=== PATIENT | male | born 1960 | race Caucasian/White ===

== ENCOUNTER → 2023-10-28 12:39 | Outpatient (REF) | payer MEDICARE, MEDICAID, SELFPAY | LOC: DHCBS MAIN 12:39 | PROVIDERS: ATTENDING PHYSICIAN Internal Medicine Cardiovascular Disease; FAMILY PHYSICIAN Internal Medicine | DX: I42.0 Dilated cardiomyopathy (principal) | CPT/HCPCS: 93306 ==

== ENCOUNTER 2024-03-11 16:48 | Emergency (ER) | payer MEDICARE, MEDICAID, SELFPAY ==
[2024-03-11] VITALS (7 sets, daily range): BP systolic 106–159; BP diastolic 57–102; BMI 30.3
[2024-03-11 17:10] LABS: % Basophils 0.6 % (0-2); % Eosinophils 1.3 % (0-6); % Immature Granulocytes 0.3 % (0-0.5); % Lymphocytes 28.9 % (20.5-51.1); % Monocytes 8.8 % (1.7-9.3); % Neutrophils 60.1 % (42.2-75.2); Absolute Eosinophils 0.1 10^3/uL (0-0.7); Absolute Lymphocytes 1.8 10^3/uL (1.2-3.4); Absolute Monocytes 0.5 10^3/uL (0.1-0.6); Absolute Neutrophils 3.7 10^3/uL (1.4-6.5); Hemoglobin 15.4 g/dL (13.0-18.0); Mean Corp Hgb Conc. 34.2 g/dL (33.0-37.0); Mean Corpuscular Hgb 30.6 pg (27.0-31.0); Mean Corpuscular Volume 89.5 fL (80.0-94.0); Mean Platelet Volume 9.9 fL (7.4-10.4); Nucleated Red Blood Cells % 0 % (-); Platelet Count 189 10^3/uL (130-400); Red Blood Cell Count 5.03 10^6/uL (4.70-6.10); Red Cell Dist. Width 11.9 % (11.5-14.5); White Blood Cell Count 6.2 10^3/uL (4.8-10.8)
--- NOTE | 2024-03-11 17:11 | ED.CVA ---
History of Present Illness
General
Chief Complaint: CVA/TIA Symptoms
Source: patient and ambulance crew
Time Seen by Provider: 03/11/24 16:53
Onset of Stroke Symptoms
Onset of symptoms known: No
Time pt last seen normal is known: Yes
Date last time pt seen normal: 03/09/24
Time last time pt seen normal: 23:00
History of Present Illness
History of Present Illness:
63-year-old male presents to the emergency room from [facility] because he was experiencing left lower extremity weakness and staff perceived increased left facial droop. Patient does have a history of a CVA which left him with
significant left sided weakness. Through rehab he was able to gain some use of his leg is ambulatory. Patient noticed when he awoke from sleep yesterday morning that he was having difficulty using his left leg. He was still able to ambulate but
was more problematic. Staff thought he had a more prominent left facial droop though the patient states he has a chronic left facial droop. Patient denies any headache. He denies any fever, chills, nausea or vomiting.
Past History
Past History
ED Past Medical History: CHF (EF of 10%), CVA (Right MCA infarct January 2014), HTN, Hypercholesterolemia, Other (Bilateral pulmonary embolism January 2014, DVT) and Other (Stroke Large R MCA 01/2014)
ED Past Surgical History: Orthopedic (R LE stent and R shoulder) and Other
Social History
Tobacco: Former smoker
Alcohol: Occasional
Drug: Former user, Narcotics and IVDA
Personal:
Living: prison
Employment: Employed
Family History
Family History: Diabetes
Phy Exam
Physical Exam
Physical Exam:
General: Awake, Alert, Oriented X3. No acute distress.
Vitals: unremarkable
Head: Atraumatic
Eyes: Pupils equal, EOMI
Throat: Airway intact, no exudates
Neck: Trachea midline
Lungs: Clear and equal b/l
Heart: Regular rate, no murmurs
Abd: Soft, Nontender, No pulsatile mass
Neuro: Left facial droop which is chronic, left upper extremity contracture at the elbow, left lower extremity 5/5 strength. Sensation appears intact in the lower extremities bilaterally and right upper extremity.
Skin: Warm, dry, no rash
Extremities: pulses equal b/l, no edema
Course
Orders/Labs/Results
Orders:
Orders
03/11/24 16:55
Electrocardiogram (*1) Urgent
Reason for Study: Other
Other Reason for Exam: Possible Stroke
Bedside Glucose- Treatment ONCE
Cardiac Monitoring- Treatment ONCE
IV Insert/Care/Rem.- Treatment PRN
Vital Signs As Directed
Frequency: Other
Weight As Directed
Frequency: Once
Comment: ZERO STRETCHER SCALE FOR ACCURATE WEIGHT
O2 Therapy [RESP] Urgent
Titrate/Wean O2 to maintain O2 sat greater than (%): 93
Special Instructions: MAINTAIN CONTINUOUS O2 SATS > OR = 93%
03/11/24 16:56
EKG- Treatment ONCE
03/11/24 16:57
Complete Blood Count/With Diff Urgent
PTT Urgent
Prothrombin Time Urgent
Troponin I Urgent
Urinalysis Reflex To Culture Urgent
Date Specimen was Collected: 03/11/24
Time Specimen was Collected: 16:56
03/11/24 17:10
CT Head W/o Iv Contrast Urgent
Comment:
Reason For Exam: left leg weakness
03/11/24 18:12
Speech Screening from Yudelka Routine
03/11/24 18:18
Comprehensive Metabolic Panel Urgent
Abnormal Lab Results
03/11/24 03/11/24
16:57 18:18
PT 15.3 H Sec
(11.4-14.6)
BUN 26 H mg/dl
(9-20)
Total Bilirubin 1.7 H mg/dl
(0.2-1.3)
Urine Ketones 2+ A
(Negative)
Urine Glucose 3+ A
(Negative)
03/11/24 16:57
03/11/24 18:18
Vital Signs
Initial and Last Documented VS:
Initial Vital Signs
BP
109/62
03/11/24 16:52
Last Documented Vital Signs
Temp Pulse Resp BP Pulse Ox
98.0 F 103 16 159/75 99
03/11/24 16:58 03/11/24 20:15 03/11/24 20:15 03/11/24 20:12 03/11/24 17:38
*Radiology
Radiology exam reviewed: radiology read reviewed
*Pulse Oximetry
Patient hypoxic: no
*EKG
Interpreted by ED Provider?: Yes
Interpretation: abnormal
Heart Rate: 89
Rate: normal
Rhythm: sinus and PVC's
QRS Pattern: left vent hypertrophy
Ischemia: non-specific ST changes
*Research Project Manager Interpretation
Rate: normal
Interpretation: abnormal
Rhythm: sinus and PVC's
*Critical Care Note
Total Time (30-74mins, 75-104mins- exclusive of procedures): Not Applicable
ED Attending Note
-
Portions of this chart may have been created with voice recognition software.� Occasional wrong word or��sound alike� substitutions may have occurred due to the inherent limitations of voice recognition software.
Discharge Plan
Departure
Patient Disposition: Long-Term/SNF
Date of Disposition: 03/11/24
Time of Disposition: 20:39
Patient with high blood pressure during this ER visit?: Yes
Condition: Good
Discharge Problem:
Left leg weakness
Instructions: Weakness ED
Prescriptions:
No Action
aspirin 81 mg Tablet,Delayed Release (Dr/Ec)
81 mg PO DAILY Qty: 0
spironolactone 12.5 MG tablet
12.5 mg PO DAILY
Eliquis 5 mg Tablet
5 mg PO BID Qty: 0
latanoprost 0.005 % Drops
1 drp BOTH EYES QPM Qty: 0
atorvastatin 40 MG tablet
40 mg PO QPM Qty: 0 0RF
Rx Instructions:
after one week
acetaminophen 325 mg Tablet
650 mg PO Q6HPRN PRN (Reason: temp>100)
carvedilol 6.25 mg tablet
6.25 mg PO BID
gabapentin 400 mg Capsule
400 mg PO HS
loperamide [Imodium A-D] 2 mg Tablet
2 mg PO [id number] PRN (Reason: diarrhea)
acetaminophen 500 mg Tablet
500 mg PO Q4HPRN PRN (Reason: mild pain)
acetaminophen 500 mg Tablet
500 mg PO BID
magnesium hydroxide [Milk of Magnesia] 400 mg/5 mL Suspension
30 ml PO DAILYPRN PRN (Reason: constipation)
bisacodyl [Dulcolax (bisacodyl)] 10 mg Suppository
10 mg ME DAILYPRN PRN (Reason: if mom ineffective after 24hrs)
Fleet Enema 19-7 gram/118 mL Enema
118 ml ME DAILYPRN PRN (Reason: if dulcolax is ineffective after 24hrs)
gabapentin 300 mg Capsule
300 mg PO DAILY
furosemide 20 mg tablet
20 mg PO DAILY
melatonin 5 mg Tablet
5 mg PO HS
Jardiance 10 mg tablet
10 mg PO DAILY
Entresto 49-51 mg tablet
1 tab PO BID
tramadol 50 MG tablet
50 mg PO BID
Referrals:
UNKNOWN - PT DOES,NOT KNOW [Family Provider] -
Activity Restrictions/Additional Instructions:
You CT scan does not show a new infarct. You are already taking all the appropriate medications even if you did have a small, new stroke. You are stable for discharge back to your facility.
Interventions
Interventions:
*Risk Screen - Suicide Last Done: 03/11/24 16:58
*General Assessment Last Done: 03/11/24 16:58
*Neglect/Abuse Screening Last Done: 03/11/24 16:58
*ED COVID-19 Vaccine History Last Done: 03/11/24 17:06
ED- Pulmonary Assessment Last Done: 03/11/24 17:38
ED- Neurological Assessment Last Done: 03/11/24 17:38
ED- Cardiac Assessment Last Done: 03/11/24 17:38
ED Swallowing Screen Last Done: 03/11/24 18:10
Discharge Date and Time
Print Language: STATELESS
[2024-03-11 17:17] LABS: INR 1.22; PT 15.3 Sec (11.4-14.6)
[2024-03-11 17:18] LABS: APTT 28.9 Sec (23.4-35.0)
[2024-03-11 17:20] LABS: Glucose - Point of Care 93 mg/dl (70-99)
[2024-03-11 17:26] LABS: Troponin I < 0.012 ng/ml
[2024-03-11 18:44] LABS: ALT (SGPT) 24 U/L (0-50); AST (SGOT) 27 U/L (17-59); Albumin 4.6 g/dl (3.5-5.0); Alkaline Phosphatase 63 U/L (38-126); Blood Urea Nitrogen 26 mg/dl (9-20); Calcium 9.5 mg/dl (8.4-10.2); Carbon Dioxide 23 mmol/L (22-30); Chloride 102 mmol/L (98-107); Estimated Creatinine Clearance > 125 ml/min; Glucose 91 mg/dl (70-99); Potassium 4.2 mmol/L (3.5-5.1); Sodium 135 mmol/L (135-145); Total Bilirubin 1.7 mg/dl (0.2-1.3); Total Protein 7.1 g/dl (6.3-8.2); eGFR > 60.00
[2024-03-11 19:49] LABS: Urine Albumin Trace (Neg - Trace); Urine Bilirubin Negative (Negative); Urine Character Clear (Clear); Urine Color Yellow; Urine Glucose 3+ (Negative); Urine Ketone 2+ (Negative); Urine Leukocyte Negative (Negative); Urine Nitrite Negative (Negative); Urine Occult Blood Negative (Negative); Urine Urobilinogen Negative (Neg - 1+)
== END 2024-03-11 22:52 ==
LOC: EMR 16:48
PROVIDERS: EMERGENCY PHYSICIAN Emergency Medicine
DX: R53.1 Weakness (principal); R29.810 Facial weakness; I11.0 Hypertensive heart disease with heart failure; I50.9 Heart failure, unspecified; E78.00 Pure hypercholesterolemia, unspecified; Z83.3 Family history of diabetes mellitus; Z86.711 Personal history of pulmonary embolism; Z86.718 Personal history of other venous thrombosis and embolism; Z86.73 Personal history of transient ischemic attack (TIA), and cerebral infarction without residual deficits; Z87.891 Personal history of nicotine dependence
CPT/HCPCS: 99284; 70450; 80053; 81003; 82962; 84484; 85025; 85610; 85730; 93005

== ENCOUNTER 2024-03-13 09:08 | Inpatient (IN) | payer MEDICARE, MEDICAID, SELFPAY ==
[2024-03-12] VITALS (14 sets, daily range): BP systolic 101–172; BP diastolic 62–98; PULSE 107–135; O2SAT 96; BMI 30.6; BMI 29.7
[2024-03-12 03:49] LABS: Glucose - Point of Care 108 mg/dl (70-99)
--- NOTE | 2024-03-12 04:11 | ED.CVA ---
History of Present Illness
<Hansa Freeman DO - Last Filed: 03/12/24 07:08>
General
Chief Complaint: CVA/TIA Symptoms
Time Seen by Provider: 03/12/24 03:52
Onset of Stroke Symptoms
Onset of symptoms known: Yes
Date of onset of symptoms: 03/12/24
History of Present Illness
History of Present Illness:
63-year-old male with history of prior stroke with chronic left-sided facial droop and left-sided weakness, congestive heart failure, hyperlipidemia, hypertension, anticoagulated on Eliquis presenting to the emergency department for strokelike
symptoms. Patient presents from [facility] with nursing facility. Patient had been seen about 12 hours prior to arrival with staff concern for worsening left-sided facial droop and left lower extremity weakness. Patient has these deficits at
baseline. He had CT brain and CT angio, which was negative for acute process. [facility] Upon his arrival back to the nursing facility, staff was concerned that his speech was worse, and now some right
sided weakness. Patient subsequently sent back to the emergency department. Patient in agreement, feels that his speech is worse in the right lower extremities. He is unsure when he last felt normal. Denies chest pain, difficulty breathing,
abdominal pain. Denies fever or systemic symptoms. No additional history obtained at this time
Past History
<DO Beverly Harper Last Filed: 03/12/24 07:08>
Past History
ED Past Medical History: CHF (EF of 10%), CVA (Right MCA infarct January 2014), HTN, Hypercholesterolemia, Other (Bilateral pulmonary embolism January 2014, DVT) and Other (Stroke Large R MCA 01/2014)
ED Past Surgical History: Orthopedic (R LE stent and R shoulder) and Other
Social History
Tobacco: Former smoker
Alcohol: Occasional
Drug: Former user, Narcotics and IVDA
Personal:
Living: jail
Employment: Employed
Family History
Family History: Diabetes
Phy Exam
<Hansa Freeman DO - Last Filed: 03/12/24 07:08>
Physical Exam
Physical Exam:
General: no clinical signs of dehydration, nontoxic and in no acute distress
HEENT: protecting airway
Neck: appears supple
CV: Normal heart rate, regular rhythm, no evidence of cyanosis
Resp: No accessory muscle use, no increased work of breathing, lungs clear to auscultation bilaterally
Abd: Soft and non-distended, no tenderness to palpation
Extremities: No deformities, no swelling, no erythema
Neuro: alert, slurred speech, left-sided facial droop which is reported as chronic, contracted left upper extremity which is reported as chronic, left lower extremity weakness (4/5, reported as chronic), 4/5 strength of right lower extremity with
drift which is reportedly new. Intact strength to right upper extremity. Intact sensation globally
: deferred
Rectal: deferred
Psych: Normal affect
Skin: Intact
NIH Stroke Score
Level of Consciousness: 0 - Alert
LOC questions: 0-Answers both correctly
LOC Commands: 0-Performs both correctly
Best Gaze: 0-Normal
Visual Lay: 0=Normal, no visual loss
Facial palsy: 2=Partial paralysis (chronic)
Motor - Right Arm: 0=No drift 10 seconds
Motor - Left Arm: 4=No movement (chronic)
Motor - Right Le-Drift < 5 seconds
Motor - Left Le-Drift < 5 seconds (chronic)
Limb Ataxia: 0-Absent
Sensation: 0-Normal
Best Language: 0-No aphasia
Dysarthria: 1-Mild slurring
Extinction and Inattention: 0-No abnormality
Total Score:: 9
<Meme Dillard MD - Last Filed: 03/12/24 09:07>
NIH Stroke Score
Total Score:: 9
Course
<Hansa Freeman, DO - Last Filed: 03/12/24 07:08>
Orders/Labs/Results
Orders:
Orders
03/12/24 03:52
CT Head & Neck Angio W/wo IV Urgent
Comment:
Reason For Exam: slurred speech
03/12/24 04:25
Type+Screen Urgent
Complete Blood Count/With Diff Urgent
Comprehensive Metabolic Panel Urgent
PTT Urgent
Prothrombin Time Urgent
Troponin I Q6H
03/12/24 04:47
EKG [Electrocardiogram (*1)] Urgent
Reason for Study: TIA/Stroke
03/12/24 04:48
EKG- Treatment ONCE
03/12/24 05:48
Admit/Transfer Patient As Directed
Co-Sign Provider:
Level of Care: Observation services
Assign to:: Telemetry
Physician / Group: Len
Diagnosis: CVA / TIA
Reason for Telemetry: CVA/TIA
Date to Stop Telemetry: 03/15/24
Time to Stop Telemetry: 11:00
PRN Pain Medication Management As Directed
May give lesser potent ordered pain med per pt: Yes
preference::
Protocol:: Medication orders for pain may be administered in a
manner that supports deferring to patient preference
when the pt is:
- Requesting an ordered lesser potent pain medication.
Least to most potent pain medications are defined
as: acetaminophen < NSAID < tramadol < opioids
(morphine, oxycodone, hydromorphone).
- Requesting a lesser dose of the same medication IF
ORDERED.
- Requesting a less intrusive route of administration
if both routes are prescribed by the provider (PO <
IV).
03/12/24 05:51
Code Status As Directed
Resuscitation Status: Do not resuscitate
Based on pt advanced directive or healthcare POA form: Yes
03/12/24 05:53
DNR Bracelet Application ONCE
03/12/24 10:00
Troponin I Q6H
03/12/24 16:00
Troponin I Q6H
03/12/24 22:00
Troponin I Q6H
03/15/24 11:00
DC Protocol for Telemetry ONCE
Abnormal Lab Results
03/12/24 03/12/24
03:48 04:25
Absolute Lymphs (auto) 1.1 L 10^3/uL
(1.2-3.4)
Lymphocytes % 17.7 L %
(20.5-51.1)
PT 17.0 H Sec
(11.4-14.6)
Sodium 133 L mmol/L
(135-145)
BUN 29 H mg/dl
(9-20)
Total Bilirubin 2.4 H mg/dl
(0.2-1.3)
POC Glucose 108 H mg/dl
(70-99)
03/12/24 04:25
03/12/24 04:25
Vital Signs
Initial and Last Documented VS:
Initial Vital Signs
Temp Pulse Resp BP Pulse Ox
97.9 F 96 18 130/70 98
03/12/24 03:44 03/12/24 03:44 03/12/24 03:44 03/12/24 03:44 03/12/24 03:44
Last Documented Vital Signs
Temp Pulse Resp BP Pulse Ox
97.9 F 82 16 130/78 93
03/12/24 03:44 03/12/24 08:00 03/12/24 07:45 03/12/24 07:00 03/12/24 08:00
<Meme Dillard MD - Last Filed: 03/12/24 09:07>
Orders/Labs/Results
Orders:
Orders
03/12/24 03:52
CT Head & Neck Angio W/wo IV Urgent
Comment:
Reason For Exam: slurred speech
03/12/24 04:25
Type+Screen Urgent
Complete Blood Count/With Diff Urgent
Comprehensive Metabolic Panel Urgent
PTT Urgent
Prothrombin Time Urgent
Troponin I Q6H
03/12/24 04:47
EKG [Electrocardiogram (*1)] Urgent
Reason for Study: TIA/Stroke
03/12/24 04:48
EKG- Treatment ONCE
03/12/24 05:48
Admit/Transfer Patient As Directed
Co-Sign Provider:
Level of Care: Observation services
Assign to:: Telemetry
Physician / Group: Len
Diagnosis: CVA / TIA
Reason for Telemetry: CVA/TIA
Date to Stop Telemetry: 03/15/24
Time to Stop Telemetry: 11:00
PRN Pain Medication Management As Directed
May give lesser potent ordered pain med per pt: Yes
preference::
Protocol:: Medication orders for pain may be administered in a
manner that supports deferring to patient preference
when the pt is:
- Requesting an ordered lesser potent pain medication.
Least to most potent pain medications are defined
as: acetaminophen < NSAID < tramadol < opioids
(morphine, oxycodone, hydromorphone).
- Requesting a lesser dose of the same medication IF
ORDERED.
- Requesting a less intrusive route of administration
if both routes are prescribed by the provider (PO <
IV).
03/12/24 05:51
Code Status As Directed
Resuscitation Status: Do not resuscitate
Based on pt advanced directive or healthcare POA form: Yes
03/12/24 05:53
DNR Bracelet Application ONCE
03/12/24 10:00
Troponin I Q6H
03/12/24 16:00
Troponin I Q6H
03/12/24 22:00
Troponin I Q6H
03/15/24 11:00
DC Protocol for Telemetry ONCE
Abnormal Lab Results
03/12/24 03/12/24
03:48 04:25
Absolute Lymphs (auto) 1.1 L 10^3/uL
(1.2-3.4)
Lymphocytes % 17.7 L %
(20.5-51.1)
PT 17.0 H Sec
(11.4-14.6)
Sodium 133 L mmol/L
(135-145)
BUN 29 H mg/dl
(9-20)
Total Bilirubin 2.4 H mg/dl
(0.2-1.3)
POC Glucose 108 H mg/dl
(70-99)
03/12/24 04:25
03/12/24 04:25
Vital Signs
Initial and Last Documented VS:
Initial Vital Signs
Temp Pulse Resp BP Pulse Ox
97.9 F 96 18 130/70 98
03/12/24 03:44 03/12/24 03:44 03/12/24 03:44 03/12/24 03:44 03/12/24 03:44
Last Documented Vital Signs
Temp Pulse Resp BP Pulse Ox
97.9 F 82 16 130/78 93
03/12/24 03:44 03/12/24 08:00 03/12/24 07:45 03/12/24 07:00 03/12/24 08:00
<Hansa Freeman, DO - Last Filed: 03/12/24 07:08>
MDM/Problems Addressed
MDM/Problems Addressed:
63-year-old male with prior history of CVA with left-sided deficits and anticoagulation on Eliquis presenting for slurred speech and right-sided weakness. Vital signs on arrival are normal.
On exam, patient in no acute distress. Obvious neurologic deficits, however most of which appear to be chronic in nature with obvious left-sided facial drooping, left upper and lower extremity weakness and slurring of speech. Patient does however
report that his slurred speech feels worse and now is reporting right lower extremity weakness. Patient is unsure when his symptoms started, however patient had been seen at 5 PM yesterday for strokelike symptoms as well, 11 hours prior to arrival.
Given strokelike symptoms, do not feel patient is a tPA candidate. In addition, patient is anticoagulated on Eliquis, again indicating the patient is not a tPA candidate. Due to acute on chronic deficits, patient sent to CT for CT brain and CTA.
Will also repeat laboratory analysis.
05:20 -patient's repeat CT without acute process. Labs unremarkable. Given worsening neurologic symptoms, feel patient warrants admission for continued neurologic monitoring and potential MRI imaging.
<Hansa Freeman DO - Last Filed: 03/12/24 07:08>
*Critical Care Note
Total Time (30-74mins, 75-104mins- exclusive of procedures): Not Applicable
<Meme Dillard MD - Last Filed: 03/12/24 09:07>
Update Note
Update Note:
9:00 AM patient's heart rate increased to the 130s. EKG checked by me. Shows sinus tachycardia with slightly wider QRS and ST depressions. Patient is very difficult to assess given his agitation and drowsiness, however, he does not localize any
areas of pain and seems to be breathing comfortably. Hospitalist made aware and will reassess patient frequently upstairs
ED Attending Note
<Hansa Freeman DO - Last Filed: 03/12/24 07:08>
-
Portions of this chart may have been created with voice recognition software.� Occasional wrong word or��sound alike� substitutions may have occurred due to the inherent limitations of voice recognition software.
Discharge Plan
Departure
Patient Disposition: Admit
Date of Disposition: 03/12/24
Time of Disposition: 05:49
Presentation/result/management discussed w/ accepting MD/DO: Hospitalist
Patient with high blood pressure during this ER visit?: No
Condition: Fair
Discharge Problem:
Stroke-like symptoms, Slurred speech
Interventions
Interventions:
*Risk Screen - Suicide Last Done: 03/12/24 03:44
*General Assessment Last Done: 03/12/24 03:44
*Neglect/Abuse Screening Last Done: 03/12/24 03:44
ED- Pulmonary Assessment Last Done: 03/12/24 04:21
ED- Neurological Assessment Last Done: 03/12/24 07:05
ED- Cardiac Assessment Last Done: 03/12/24 04:21
ED Swallowing Screen Last Done: 03/12/24 06:06
[2024-03-12 04:34] LABS: % Basophils 0.2 % (0-2); % Eosinophils 0.3 % (0-6); % Immature Granulocytes 0.3 % (0-0.5); % Lymphocytes 17.7 % (20.5-51.1); % Monocytes 6.6 % (1.7-9.3); % Neutrophils 74.9 % (42.2-75.2); Absolute Lymphocytes 1.1 10^3/uL (1.2-3.4); Absolute Monocytes 0.4 10^3/uL (0.1-0.6); Absolute Neutrophils 4.8 10^3/uL (1.4-6.5); Hematocrit 41.4 % (39.0-52.0); Hemoglobin 14.4 g/dL (13.0-18.0); Mean Corp Hgb Conc. 34.8 g/dL (33.0-37.0); Mean Corpuscular Hgb 30.3 pg (27.0-31.0); Mean Corpuscular Volume 87.2 fL (80.0-94.0); Mean Platelet Volume 9.8 fL (7.4-10.4); Nucleated Red Blood Cells % 0 % (-); Platelet Count 175 10^3/uL (130-400); Red Blood Cell Count 4.75 10^6/uL (4.70-6.10); Red Cell Dist. Width 11.9 % (11.5-14.5); White Blood Cell Count 6.4 10^3/uL (4.8-10.8)
[2024-03-12 04:46] LABS: APTT 32.7 Sec (23.4-35.0)
[2024-03-12 04:59] LABS: ALT (SGPT) 24 U/L (0-50); AST (SGOT) 27 U/L (17-59); Albumin 4.4 g/dl (3.5-5.0); Alkaline Phosphatase 61 U/L (38-126); Blood Urea Nitrogen 29 mg/dl (9-20); Calcium 9.4 mg/dl (8.4-10.2); Carbon Dioxide 23 mmol/L (22-30); Chloride 101 mmol/L (98-107); Estimated Creatinine Clearance 113 ml/min; Glucose 96 mg/dl (70-99); Potassium 4.3 mmol/L (3.5-5.1); Sodium 133 mmol/L (135-145); Total Bilirubin 2.4 mg/dl (0.2-1.3); Total Protein 6.8 g/dl (6.3-8.2); eGFR > 60.00
[2024-03-12 05:08] LABS: Troponin I < 0.012 ng/ml
--- NOTE | 2024-03-12 05:55 | HPS.HSE ---
Family Physician
-
Family Physician: Apolinar Espinoza, DO
Chief Complaint
-
Weakness
History of Present Illness
Patient is a 63y M with PMH significant for left hemiplegia s/p R MCA CVA who [place] ED from local [facility] complaining of weakness. Patient was seen in the ED on 03/11 with complaints of worsened L sided weakness and L facial droop noted by [facility]
staff. Patient was evaluated in the ED and had CT head which was unremarkable. He stated that he did not have any significant new deficits and was discharged back to nursing facility. Patient returned to the ED several hours later again
complaining of weakness and worsened speech.
Patient complained to the ED staff of RLE weakness.
At the time of my exam, he complains of LLE weakness. He denies any R sided complaints.
He is fairly somnolent in the ED and wakens only with some difficulty / noxious stimuli. He does have thickened / slurred speech which he feels is worse than baseline.
Medical History
Past Medical History
Past Medical History: Reports Other
Additional Past Medical History:
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
Bilateral Pulmonary Embolism
RLE DVT
Hypertension
Chronic HFrEF
Chronic Pain / Polyneuropathy
Past Surgical History: Reports Other
Additional Past Surgical History:
Right Shoulder Surgery
Social History
Tobacco: Former Smoker (Quit in 2015. Approx 40 pack years total use.)
Alcohol: Former (History of alcohol use disorder. No alcohol in several years.)
Drug: Other (History of amphetamine abuse. None in several years.)
Living: Long-Term
Family History
Family History: Other (Mother: CHF Father: Kidney disease)
Allergies / Home Medications
Allergies reflects when Allergies were last updated in [employer].
Home Medications with original date entered in [employer]
Allergy/Medication List:
Allergies
Allergy/AdvReac Type Severity Reaction Status Date / Time
No Known Allergies Allergy Verified 03/12/24 04:56
Home Medications
apixaban 5 mg tablet (Eliquis) 5 mg PO BID ##0 11/21/16
aspirin 81 mg tablet,delayed release 81 mg PO DAILY ##0 11/21/16
latanoprost 0.005 % eye drops 1 drp BOTH EYES QPM ##0 11/21/16
spironolactone 25 mg tablet 12.5 mg PO DAILY 11/21/16
atorvastatin 40 mg tablet 40 mg PO QPM ##0 11/26/16
acetaminophen 325 mg tablet 650 mg PO Q6HPRN PRN temp>100 03/11/24
acetaminophen 500 mg tablet 500 mg PO BID 03/11/24
acetaminophen 500 mg tablet 500 mg PO Q4HPRN PRN mild pain 03/11/24
bisacodyl 10 mg rectal suppository (Dulcolax (bisacodyl)) 10 mg [place] DAILYPRN PRN if mom ineffective after 24hrs 03/11/24
carvedilol 6.25 mg tablet 6.25 mg PO BID 03/11/24
empagliflozin 10 mg tablet (Jardiance) 10 mg PO DAILY 03/11/24
furosemide 20 mg tablet 20 mg PO DAILY 03/11/24
gabapentin 300 mg capsule 300 mg PO DAILY 03/11/24
gabapentin 400 mg capsule 400 mg PO HS 03/11/24
loperamide 2 mg tablet (Imodium A-D) 2 mg PO [id number] PRN diarrhea 03/11/24
magnesium hydroxide 400 mg/5 mL oral suspension (Milk of Magnesia) 30 ml PO DAILYPRN PRN constipation 03/11/24
melatonin 5 mg tablet 5 mg PO HS 03/11/24
sacubitril 49 mg-valsartan 51 mg tablet (Entresto) 1 tab PO BID 03/11/24
sodium phosphates 19 gram-7 gram/118 mL enema (Fleet Enema) 118 ml [place] DAILYPRN PRN if dulcolax is ineffective after 24hrs 03/11/24
tramadol 50 mg tablet 50 mg PO BID 03/11/24
Review of Systems
-
History Source: Patient
A 12 point ROS was completed and negative except as noted: Yes
Constitutional: Denies Fever or Chills
Respiratory: Denies Cough or Trouble Breathing
Cardiac: Denies Chest Pain or Palpitations
Abdomen/GI: Denies Abdominal Pain, Nausea, Vomiting or Diarrhea
Musculoskeletal: Denies Joint Pain or Edema
Neurological: Reports Weakness, Numbness and Other (Slurred speech.); Denies Dizzy or Headache
Psych: Denies Depression or Anxiety
Physical Exam
Vital Signs
Vital Signs
Temp Pulse Resp BP Pulse Ox
97.9 F 105 11 116/71 97
03/12/24 03:44 03/12/24 05:00 03/12/24 05:00 03/12/24 05:00 03/12/24 05:00
Physical Exam
General: Other (63y M sleeping comfortably. Awakens with some difficulty. Answers questions appropriately.)
HEENT: Other (Few crusted skin lesions in L V1 distribution. Dry MM.)
Respiratory: Clear; No Wheezes, Rales or Rhonchi
Cardiac: S1/S2 and Regular Rhythm (with ectopy.); No Murmur
GI: Soft, Non Tender, Non Distended and Normal Bowel Sounds
Musculoskeletal: No Clubbing, No Cyanosis, No Edema and Other (Chronic venous stasis skin changes b/l LEs.)
Neuro: Other (LUE Hemiplegia / contracture - unchanged from baseline. L facial droop / ptosis - unchanged from baseline. LLE weakness compared to the R / dysarthria - worse than baseline per patient.)
Laboratory Results
-
03/12/24 04:25
03/12/24 04:25
Laboratory Results
PT 17.0 Sec (11.4-14.6) H 03/12/24 04:25
INR 1.40 03/12/24 04:25
APTT 32.7 Sec (23.4-35.0) 03/12/24 04:25
Total Bilirubin 2.4 mg/dl (0.2-1.3) H 03/12/24 04:25
AST 27 U/L (17-59) 03/12/24 04:25
ALT 24 U/L (0-50) 03/12/24 04:25
Alkaline Phosphatase 61 U/L (38-126) 03/12/24 04:25
Troponin I < 0.012 ng/ml 03/12/24 04:25
Impression/Plan
-
A/P: Patient is a 63y M with PMH significant for L hemiplegia s/p prior CVA who presents to ED for evaluation of new / worsened weakness.
Dysarthria
Weakness
- Observe for further evaluation and treatment.
- History is somewhat fluid with complaints of L and / or R LE weakness.
- He does have dysarthria which he states is worse and he complains of increased LLE weakness.
- ? recrudescence of prior CVA symptoms due to metabolic issue or other acute process.
- CT and CTA done in the past 24 hours without new changes.
- Follow neuro exam for any new changes.
- MRI this AM for further evaluation.
- Neurology evaluation.
- PT / OT / Speech evals.
- Continue current med regimen including ASA, Eliquis, statin, etc.
Chronic HFrEF
- LVEF 15% on most recent Echo.
- Does not appear grossly volume overloaded on exam.
- BP borderline low for him.
- Continue Entresto with holding parameters.
- Continue Jardiance. Monitor glucose to rule out hypoglycemia, etc.
- Hold Lasix and Aldactone acutely and follow I/Os, daily weight, etc.
ASCVD
Prior CVA with L Hemiparesis / Hemiplegia
- Continue current med regimen including ASA, Eliquis, statin, etc.
Chronic Pain Syndrome
- No complaints of pain at present.
- Continue gabapentin.
- Hold other sedating meds acutely given somnolence noted on admission.
Possible Zoster
- Patient with crusted skin lesions in V1 distribution on the L.
- ? if this is related to increase in dysarthria / droop / etc.
- Does not appear to have any active lesions / pustules.
- Valacyclovir 1000mg TID for now.
- Patient denies significant pain / itching / etc - on chronic gabapentin.
DVT Prophylaxis
History of DVT / PE
- Continue Eliquis.
Code Status: DNR
[2024-03-12] MEDS: ATIVAN 1 MG IV (06:56)
[2024-03-12] MEDS: ASPIR LOW (ENTERIC COATED) 81 MG PO ×3 (09:52→21:28)
[2024-03-12] MEDS: VALTREX 1000 MG PO ×2 (09:52→14:58)
[2024-03-12] MEDS: ELIQUIS 5 MG PO ×2 (09:52→19:52)
[2024-03-12] MEDS: NEURONTIN 300 MG PO ×2 (09:53→19:52)
[2024-03-12] MEDS: COREG 6.25 MG PO (09:53)
[2024-03-12 09:56] LABS: Glucose - Point of Care 104 mg/dl (70-99)
[2024-03-12] MEDS: ENTRESTO 49 MG/51 MG 1 TAB PO ×2 (09:56→19:52)
[2024-03-12 12:11] LABS: TSH Reflex To Free T4 0.73 uIU/ml (0.47-4.68)
--- NOTE | 2024-03-12 13:23 | PTCARENOTE ---
Pt. at MRI. Restless and not cooperating. made aware. IV Ativan ordered and administered. MRI taken.
[2024-03-12] MEDS: ATIVAN 0.5 MG IV (13:52)
[2024-03-12] MEDS: NSS (PRESERVATIVE FREE) 0.25 ML IV (13:53)
[2024-03-12 14:18] LABS: Glucose - Point of Care 124 mg/dl (70-99)
[2024-03-12] MEDS: LOPRESSOR 5 MG IV (14:59)
--- NOTE | 2024-03-12 15:58 | PTOTSP ---
Speech Therapy
Presentation: Patient was partially oriented and confused. Patient's speech appeared to be intelligible with some difficulty inconsistently.
Swallowing Function: MONOTYPER observed patient with several bites of cracker and sips of thin liquids in which patient appeared to tolerate as he did not exhibit any overt clinical s/sx of aspiration. Noted with mild prolonged mastication with regular
consistency solids.
Given the above information, recommend regular consistency solids and thin liquids diet with supervision/ assistance with PO and PO only when alert.
Recommendations:
1) Regular consistency solids and thin liquids
2) Standard aspiration precautions
3) Medications as tolerated
4) Assistance and supervision with PO
5) PO only when alert
Plan: MONOTYPER will continue to follow; pending hospitalization.
--- NOTE | 2024-03-12 16:06 | CON.NEURO4 ---
Addendum entered and electronically signed by Rubio Thomas MD 03/13/24 11:09:
Please Note New LEFT Internal Capsular Infarction with RIGHT hemiparesis
Original Note:
Consultation - Neurology 4
-
CONSULTING PHYSICIAN: Rubio Thomas MD
REFERRING PHYSICIAN: Hospitalist
DICTATED BY: Rubio Russell MD
DATE/TIME OF REQUEST: March 12, 2024
DATE/TIME OF CONSULTATION: March 12 2024.. 1530
Reason for Consultation:
History of Present Illness:
This is a 63 year old right handed male who has presented to the hospital with chief complaint of left-sided weakness. He gives a history of R MCA CVA with L Hemiplegia (January 2014),Bilateral Pulmonary Embolism,
RLE DVT, Hypertension,Chronic HFrEF, Chronic Pain / Polyneuropathy, PMH significant for left hemiplegia s/p R MCA CVA who presents to ED from local [place] complaining of weakness. Patient was seen in the ED on 03/11 with complaints of worsened L sided
weakness and L facial droop noted by [facility] staff. Patient was evaluated in the ED and had CT head which was unremarkable. He stated that he did not have any significant new deficits and was discharged back to nursing facility. Patient returned to
the ED several hours later again complaining of weakness and worsened speech.
Patient complained to the ED staff of RLE weakness.
At the time of my exam, he complains of RLE weakness.
He is fairly somnolent in the ED and wakens only with some difficulty / noxious stimuli. He also has slurred speech which he feels is worse than baseline.
Following admission he continues to have bilateral weakness which is worse on the left side and that is chronic
Past Medical History: As above
Surgical History: Shoulder surgery
Family History: Mother has congestive heart failure father has chronic renal insufficiency
Social History: Single lives at a group home. Past history of alcohol and drug use. Stopped smoking(previous h/o [id number])
Allergies: None
Home Medications: See addendum
Review of Symptoms:
�Per the HPI. I am unable to obtain a complete review of systems�because of patient's inability to provide history.'
Vital Signs:
The patient has a Temp 36.8 C Pulse 135 Resp16 BP 136/81 Pulse Ox 95
Physical Exam:
Head and neck exam: Rash over the left supraorbital region across the forehead
The patient is afebrile, heart sounds S1 and S2 are (regular / irregular), and chest is clear to auscultation bilaterally.
- If not clear, describe.
Neurologic Examination:
The patient is awake, confused and oriented x person . He is able to follow commands and answer questions occasionally. Speech is limited, with aphasia and dysarthria.
On cranial nerve assessment, pupils are 3 mm bilateral, round and reactive to light and accommodation. Visual mclean are full. Extraocular movements are intact. Facial sensations are intact and bilaterally symmetrical,
there is mild facial asymmetry. Hearing is intact bilaterally to normal conversation volume. Tongue palate and uvula are midline. Sternocleidomastoid strengths are full bilaterally.
Motor strengths are 3/5 bilateral upper and lower extremities on medical research [place] scale. There is no drift or involuntary movement noted. Deep tendon reflexes are 2+ bilateral upper and lower extremities and Babinski is present bilaterally.
Sensations of pain, touch, temperature and vibration are impaired bilaterally asymmetrical.. Coordination is impaired by finger to nose bilaterally. Romberg's and gait cannot be tested as patient is bedbound
Lab Results:
Neuro Imaging:
Impression:
Mr. GIAN GUZMAN is a 63 year old M who has presented to the hospital with (symptoms/chief complaint).
Differentials for the patient's presentation include:
1. Right internal capsule infarct
2. Right frontal lobe infarct-chronic with encephalomalacia
3.
4.
Recommendations:
1. Continue Eliquis and aspirin
2. Serial CT head
3. Strict blood pressure management
4. Strict blood sugar control
5. Low-dose statin
Discussed patient care with: Hospitalist
Allergies
-
Allergies
Allergy/AdvReac Type Severity Reaction Status Date / Time
No Known Allergies Allergy Verified 03/12/24 04:56
Vital Signs and Labs
-
Vital Signs and Labs:
Vital Signs
Temp Pulse Resp BP Pulse Ox
36.8 C 135 16 136/81 95
03/12/24 14:27 03/12/24 14:59 03/12/24 14:27 03/12/24 14:59 03/12/24 14:27
Lab Results
03/12/24 04:25
03/12/24 04:25
PT 17.0 Sec (11.4-14.6) H 03/12/24 04:25
INR 1.40 03/12/24 04:25
APTT 32.7 Sec (23.4-35.0) 03/12/24 04:25
Sodium 133 mmol/L (135-145) L 03/12/24 04:25
Potassium 4.3 mmol/L (3.5-5.1) 03/12/24 04:25
BUN 29 mg/dl (9-20) H 03/12/24 04:25
Glucose 96 mg/dl (70-99) 03/12/24 04:25
Calcium 9.4 mg/dl (8.4-10.2) 03/12/24 04:25
Medications
-
Active Medications
Generic Name Dose Route Start Last Admin
Trade Name Freq PRN Reason Stop Dose Admin
Acetaminophen 500 mg 03/12/24 09:11
Acetaminophen 500 Mg Tablet PO 04/09/24 09:10
Q4HPRN PRN
mild pain, temp > 101
Apixaban 5 mg 03/12/24 09:11 03/12/24 09:52
Apixaban (Eliquis) 5 Mg Tablet PO 04/09/24 09:10 5 mg
BID BROOKE Administration
Aspirin 81 mg 03/12/24 18:00
Aspirin 81 Mg (Enteric Coated) Tablet PO 04/09/24 17:59
5/D BROOKE
Atorvastatin Calcium 80 mg 03/12/24 18:00
Atorvastatin (Lipitor) 40 Mg Tablet PO 04/09/24 17:59
QPM BROOKE
Carvedilol 12.5 mg 03/12/24 14:40
Carvedilol 6.25 Mg Tablet PO 04/09/24 09:10
BID BROOKE
Dextrose 12.5 grams 03/12/24 09:11
Dextrose 50% (0.5 Grams/Ml) 50 Ml Syringe IV 04/09/24 09:10
[id number] PRN
hypoglycemia
Protocol
Gabapentin 400 mg 03/12/24 22:00
Gabapentin 400 Mg Capsule PO 04/09/24 21:59
HS BROOKE
Gabapentin 300 mg 03/12/24 20:00
Gabapentin 300 Mg Capsule PO 04/09/24 19:59
BID BROOKE
Glucagon 1 mg 03/12/24 09:11
Glucagon 1 Mg Vial IM 04/09/24 09:10
PRN PRN
hypoglycemia
Protocol
Insulin Aspart 0 units 03/12/24 09:11 03/12/24 14:20
Insulin Aspart Low Resistance 300 Units/3 Ml Pen.Injctr SC 04/09/24 09:10 Not Given
AC BROOKE
Protocol
Latanoprost 1 drop 03/12/24 18:00
Latanoprost 0.005% (Ophthalmic Solution) 2.5 Ml Bottle BOTH EYES 04/09/24 17:59
QPM BROOKE
Sacubitril/Valsartan 1 tab 03/12/24 09:11 03/12/24 09:56
Sacubitril 49 Mg/Valsartan 51 Mg (Entresto) Tab PO 04/09/24 09:10 1 tab
BID BROOKE Administration
Sodium Chloride 0 flush 03/12/24 10:00
Sodium Chloride 0.9% (Flush) Syringe IV 04/09/24 09:59
PER PROTOCOL BROOKE
Valacyclovir HCl 1,000 mg 03/12/24 09:11 03/12/24 14:58
Valacyclovir Hcl 500 Mg Tablet PO 03/22/24 09:10 1,000 mg
TID BROOKE Administration
Home Medications
�Medication �Instructions �Recorded
apixaban 5 mg tablet (Eliquis) 5 mg PO BID Blood Clot 11/21/16
Prevention/Tx ##0
aspirin 81 mg tablet,delayed 81 mg PO DAILY Blood Clot 11/21/16
release Prevention/Tx ##0
latanoprost 0.005 % eye drops 1 drp BOTH EYES QPM Eye Condition 11/21/16
##0
spironolactone 25 mg tablet 12.5 mg PO DAILY Fluid 11/21/16
Retention/Swelling
atorvastatin 40 mg tablet 40 mg PO QPM ##0 11/26/16
acetaminophen 325 mg tablet 650 mg PO Q6HPRN PRN temp>100 03/11/24
acetaminophen 500 mg tablet 500 mg PO BID Pain 03/11/24
acetaminophen 500 mg tablet 500 mg PO Q4HPRN PRN mild pain 03/11/24
bisacodyl 10 mg rectal suppository 10 mg [place] DAILYPRN PRN if mom 03/11/24
(Dulcolax (bisacodyl)) ineffective after 24hrs
carvedilol 6.25 mg tablet 6.25 mg PO BID Blood Pressure 03/11/24
empagliflozin 10 mg tablet 10 mg PO DAILY Diabetes 03/11/24
(Jardiance)
furosemide 20 mg tablet 20 mg PO DAILY Fluid 03/11/24
Retention/Swelling
gabapentin 300 mg capsule 300 mg PO DAILY Neurological 03/11/24
Condition
gabapentin 400 mg capsule 400 mg PO HS Neurological Condition 03/11/24
loperamide 2 mg tablet (Imodium 2 mg PO [id number] PRN diarrhea 03/11/24
A-D)
magnesium hydroxide 400 mg/5 mL 30 ml PO DAILYPRN PRN constipation 03/11/24
oral suspension (Milk of Magnesia)
melatonin 5 mg tablet 5 mg PO HS Sleep 03/11/24
sacubitril 49 mg-valsartan 51 mg 1 tab PO BID Heart 03/11/24
tablet (Entresto) Disease/Condition
sodium phosphates 19 gram-7 118 ml [place] DAILYPRN PRN if dulcolax 03/11/24
gram/118 mL enema (Fleet Enema) is ineffective after 24hrs
tramadol 50 mg tablet 50 mg PO BID Pain 03/11/24
[2024-03-12] MEDS: ULTRAM 50 MG PO (17:12)
[2024-03-12] MEDS: LIPITOR 80 MG PO (17:12)
[2024-03-12 17:17] LABS: Glucose - Point of Care 119 mg/dl (70-99)
[2024-03-12] MEDS: XALATAN OPHTHALMIC SOLUTION BOTH EYES (17:24)
--- NOTE | 2024-03-12 18:37 | PTCARENOTE ---
Patient ST on monitor with frequent PVCs. Hr sustaining in 120s-140s. MD made aware. IV Lopressor administered. Coreg increased. VSS.
[2024-03-12] MEDS: COREG 12.5 MG PO (19:52)
[2024-03-12 21:27] LABS: Glucose - Point of Care 104 mg/dl (70-99)
[2024-03-12] MEDS: VALTREX PO ×2 (21:28→21:37)
[2024-03-13 03:18] VITALS: BP 101/54
[2024-03-13 05:05] VITALS: BMI 30.1
[2024-03-13 07:45] VITALS: BP 140/88
--- NOTE | 2024-03-13 08:14 | W.PN.HOSP.TC ---
Addendum entered and electronically signed by Felix Lou MD 03/13/24 14:38:
Consulted IR for LP
Hold Eliquis
Neuro to decide re further doses of Keppra
Original Note:
Today's Communication/Plan
-
Keppra
Hold Eliquis until cleared for full anticoagulation by neurology given new stroke
Infectious disease consultation given recent herpes zoster and clinical presentation like this
IV acyclovir
EEG
Assessment / Plan
Assessment / Plan
Called to see patient as he has difficulty with speech also. (Cannot find the note from yesterday.)
63-year-old male with left sided hemiplegia from a [facility]. Patient was seen in the emergency room on March 11 with left-sided facial droop. Patient was evaluated CT was unremarkable. He was discharged back to [facility]. Returned with
worsening speech. Patient also had right lower extremity weakness. Per nursing overnight patient was able to move his right side. This morning during rounds he was noted to be mostly unresponsive not able to move right side. Stroke alert was
called.
On examination patient is unresponsive coarse breath sounds seem to have aspirated. Looks like he also has a right-sided neglect not able to move the whole right side. Left arm with contraction
He is able to wiggle his left toes. Also right facial droop.
Skin with a few crusted lesions on the left side of the face.
Cardiovascular system S1-S2 slightly tachycardic
Chest coarse breath sounds
abdomen soft and nontender
No pedal edema
MRI of the brain-old right MCA infarct with encephalomalacia. Posterior limb of the internal capsule on the left-subacute infarct
# Mental status change/encephalopathy
Admitted with strokelike symptoms seems to have worsened from report
Stroke alert called and neurology notified
Left subacute infarct on the MRI
Hold Eliquis for now. Will discuss with neurology regarding anticoagulation moving forward.
Repeat CT without contrast-no acute changes
Keep n.p.o. until more awake
EEG ordered
per D/W Neuro- Keppra Load.
Hold tramadol .
Change Valtrex to IV acyclovir.
Infectious disease consultation.
And Aspirin Rectal.
Hold statin as n.p.o.
Echo will not jacquard loom card changer.
# History of stroke with left-sided weakness-contracted left upper extremity
# History pulmonary embolism/DVT-on Eliquis-hold until cleared to restart by neurology with acute stroke. May need Lovenox instead of Eliquis as he cannot take p.o.
# Chronic heart failure with reduced ejection fraction-hold Aldactone/Entresto/Jardiance/Coreg/Lasix
Echo 10/28/2023-normal LV size. Severely reduced systolic function. Global hypokinesis. EF 15 to 20%. Mild concentric LVH.
# Hypertension-hold Coreg
# Hyperlipidemia-hold atorvastatin
# Ambulator dysfunction
# Psoriasis
# History of alcohol abuse/ Drug abuse in the past
# History of anxiety
# History of pancreatitis
# Ex Smoker
# DNR Status confirmed with patient's sister Gayla
D/W RN at bed side
D/W Neurology
D/W Patient's daughter at bedside updated.
Discussed with radiologist
total critical care time 40 min
Anticipated Discharge: > 48 hours
Subjective/Interval History
-
Date of Service: March 13, 2024
Objective Data
-
Labs:
Laboratory Results
03/13/24
06:00
WBC Pending
Hgb Pending
Hct Pending
Plt Count Pending
Sodium Pending
Potassium Pending
Chloride Pending
Carbon Dioxide Pending
BUN Pending
Creatinine Pending
Glucose Pending
Calcium Pending
Vital Signs:
Vital Signs
Temp Pulse Resp BP Pulse Ox
98.1 F 71 16 101/54 99
03/13/24 03:18 03/13/24 03:18 03/13/24 03:18 03/13/24 03:18 03/13/24 03:18
I&O
03/12/24 03/13/24 03/14/24
06:59 06:59 06:59
Intake Total 720 / 720
Output Total 200 / 200
Balance 520 / 520
[2024-03-13 08:16] LABS: Glucose - Point of Care 209 mg/dl (70-99)
[2024-03-13] MEDS: COREG PO (08:49)
[2024-03-13] MEDS: ASPIR LOW (ENTERIC COATED) PO (08:49)
[2024-03-13] MEDS: ENTRESTO 49 MG/51 MG PO (08:50)
[2024-03-13] MEDS: NEURONTIN PO (08:50)
[2024-03-13] MEDS: ELIQUIS PO (08:50)
[2024-03-13] MEDS: VALTREX PO (08:50)
[2024-03-13] MEDS: ASPIRIN 300 MG RECTAL (09:06)
[2024-03-13] MEDS: KEPPRA 1500 MG IV (09:06)
--- NOTE | 2024-03-13 09:13 | PTCARENOTE ---
Addendum entered by Megan Valle RN 03/13/24 17:27:
this nurse spoke to MD. verbal given for SQ lovenox while eliquis is on hold. pt grunting within the room but still not able to verbalize needs. suction set up at bedside and pt remains to have HOB greater than 30. IVF verbal given to this nurse for
NSS @ 40ml/hr (one bag) while patient remains NPO
Addendum entered by Megan Valle RN 03/13/24 13:17:
q4 stroke assessments continued. pt not able to hold RUE or RLE up, but patient was able to squeeze this nurses hand with his right hand. pt also able to close and squeeze eyes shut, which he was not following commands for earlier. pt no longer
diaphoretic. pt Coating Operator at bedside and states his sister will not be by today but will be back tomorrow to see him.
Original Note:
NIH completed by this nurse. MD and neuro made aware stroke scale increase to 19, prior was 8. pt nonverbal, with L eye deviation. pt unable to hold RUE and RLE up to gravity, signifcant change from prior shift. pt diaphoretic, grunting, and L
facial droop. vitals stable, Sugar 209, EKG done at bedside.MD saw pt at bedside and pt went for Head CT. EEG ordered, unable to obtain on weekends. no upgrade to intensive care needed per MD at this time. pt made NPO, and on aspiration precautions.
No oral medications given by this nurse and suction is now set up at bedside. orders to maintain HOB at atleast 30 degrees placed. pt given IV keppra for concern of seizure.
--- NOTE | 2024-03-13 10:06 | CON.ID ---
Consultation
-
Date/Time Consultation Requested: March 13, 2024 0835
Date/Time Consultation Performed: March 13, 2024 1010
Requesting Provider: Dr. Felix Lou
Performing Provider: Dr. Julia Haywood
Reason for Consultation: facial crusty lesions, unresponsive
Chief Complaint / Past History
Chief Complaint
LLE weakness
History of Present Illness
History obtained from review medical records since patient has sudden change of mental status. He is a 63-year-old male from [facility] or [facility] with history of large right MCA stroke in 2013 with residual left-sided weakness,
heart failure with reduced EF who presented to ED on 03/11/24 due to LLE weakness and worsening L facial droop. Head CT no acute change, UA negative. He was discharged back to SNF. He returned to ED 03/12/24 with dysarthria, persistent LLE weakness. Pt
noted to have crusted lesions left forehead and was started on Valacyclovir. Brain MRI showed old R MCA infarct, subacute left internal capsule infarct. Yesterday, pt was alert and oriented. However this morning, patient noted be minimally
responsive. Valacyclovir changed to Acyclovir. Pt very lethargic. Opens eyes to voice, but does not respond to questions nor follow commands.
Past History
Additional Past Medical History:
HTN
HLD
hx R MCA CVA (2013), residual Left side weakness
HFrEF 15% to 20%
PE (2013)
Chronic pain
Right shoulder surgery
Allergy History:
No Known Allergies Allergy (Verified 03/12/24 04:56)
Medications Reviewed: Yes
Current Antibiotics:
Acyclovir 1g IV q8h
Social History
Tobacco: Former Smoker
Alcohol: Occasional
Drug: Former User (IVDA, narcotic)
Personal:
Living: [facility] ([facility])
Family History
Family History: Not Pertinent
Review of Systems
Review of Systems
Unable to obtain due to decreased mental status.
Vital Signs
Temp Pulse Resp BP Pulse Ox
98.8 F 125 16 140/88 99
03/13/24 07:45 03/13/24 07:45 03/13/24 07:45 03/13/24 07:45 03/13/24 07:45
Physical Exam
Physical Exam
Constitutional: Acutely Ill
Head: Other (No frontal or maxillary sinus tenderness)
Eyes: No Conjunctival Hemorrhage and Sclera Anicteric
Cardiovascular: S1/S2 and Other (tachycardic)
Pulmonary: Clear
Gastrointestinal: Soft, Non Tender, Non Distended and Normal Bowel Sounds
Genito-Urinary: Negative CVA Tenderness
Extremities: Negative Edema
Skin: Rash (scattered crusty lesion located entire left side of forehead to upper eyelid)
Neurological: Other (Minimally responsive); Negative Meningeal Signs (neck supple with passive movement)
Lab / Diagnostic Study Results
Abs Immat Gran (auto) 0.0 10^3/uL (0-0.05) 03/12/24 04:25
Absolute Neuts (auto) 4.8 10^3/uL (1.4-6.5) 03/12/24 04:25
Absolute Lymphs (auto) 1.1 10^3/uL (1.2-3.4) L 03/12/24 04:25
Absolute Monos (auto) 0.4 10^3/uL (0.1-0.6) 03/12/24 04:25
Absolute Basos (auto) 0.0 10^3/uL (0-0.2) 03/12/24 04:25
Immature Gran % 0.3 % (0-0.5) 03/12/24 04:25
Neutrophils % 74.9 % (42.2-75.2) 03/12/24 04:25
Lymphocytes % 17.7 % (20.5-51.1) L 03/12/24 04:25
Monocytes % 6.6 % (1.7-9.3) 03/12/24 04:25
Eosinophils % 0.3 % (0-6) 03/12/24 04:25
Basophils % 0.2 % (0-2) 03/12/24 04:25
PT 17.0 Sec (11.4-14.6) H 03/12/24 04:25
INR 1.40 03/12/24 04:25
Microbiology Results
Micro:
03/12/24 09:51 MRSA Screen - Pending
Nose
03/12/24 CTA head/neck: No significant vascular occlusion, aneurysm or dissection.
03/12/24 Brain MRI: Old right MCA infarct with encephalomalacia and white matter chronic ischemic change/gliosis. Though no restricted diffusion to suggest right hemisphere acute infarct.
There is, however, linear restricted diffusion along the course of the posterior limb of the LEFT internal capsule, suggesting subacute infarct.
03/13/24 CXR negative
03/13/[address]: 1. No new acute intracranial abnormality. 2. Subacute infarct of the left internal capsule, and a large chronic infarct of the right MCA distribution.
Assessment / Plan
# Abrupt change in mental status
# Left V1 Zoster - healing crusting lesions. Unclear whether or not pt treated at [facility].
# Subacute left infarct
# hx large R MCA infarct
- Possible VZV DETAIL TECHNICIAN vasculitis from recent V1 Zoster.
- If able, LP for cell count/dif, meningoencephalitis PCR panel, cx
- Agree with Acyclovir 10mg/kg IV q8.
- Monitor for nephrotoxicity while on Acyclovir.
Care Review
Plan reviewed with: Physician (Dr. Lou)
[2024-03-13] MEDS: ZOVIRAX INJECTION 270 MG IV ×2 (10:28→15:49)
[2024-03-13 11:25] VITALS: BP 141/83
[2024-03-13 12:06] LABS: Hematocrit 45.5 % (39.0-52.0); Hemoglobin 15.9 g/dL (13.0-18.0); Mean Corp Hgb Conc. 34.9 g/dL (33.0-37.0); Mean Corpuscular Hgb 30.2 pg (27.0-31.0); Mean Corpuscular Volume 86.3 fL (80.0-94.0); Mean Platelet Volume 9.5 fL (7.4-10.4); Platelet Count 218 10^3/uL (130-400); Red Blood Cell Count 5.27 10^6/uL (4.70-6.10); Red Cell Dist. Width 12.1 % (11.5-14.5); White Blood Cell Count 11.7 10^3/uL (4.8-10.8)
[2024-03-13 12:22] LABS: Blood Urea Nitrogen 40 mg/dl (9-20); Calcium 9.5 mg/dl (8.4-10.2); Carbon Dioxide 22 mmol/L (22-30); Chloride 104 mmol/L (98-107); Estimated Creatinine Clearance 90 ml/min; Glucose 95 mg/dl (70-99); HDL Cholesterol 54 mg/dl; LDL Cholesterol, Calculated 94 mg/dl; Potassium 4.5 mmol/L (3.5-5.1); Sodium 136 mmol/L (135-145); Total Cholesterol 176 mg/dl (50-199); Triglyceride 144 mg/dl (10-149); Very Low Density Lipoprotein 28 mg/dl (0-30); eGFR > 60.00
[2024-03-13 12:47] LABS: Glucose - Point of Care 96 mg/dl (70-99)
[2024-03-13] MEDS: LOPRESSOR 2.5 MG IV ×2 (12:49→17:13)
[2024-03-13 13:58] LABS: Glycohemoglobin (HgbA1c) 5.3 % (4.0-5.6)
[2024-03-13 15:21] VITALS: BP 114/60
--- NOTE | 2024-03-13 15:57 | CM ---
CM spoke with nursing at [facility]
Pt is LTC resident, approx 10 years
He is typically independent with ambulation with use of a quad cane
L upper hemiparesis from prior stroke
Staff assist as needed with personal care
Pt is typically AxO at baseline
Sister is primary contact
PCP- Apolinar
Rx- [facility]
Return SNF referral sent via [facility]
Discharge Disposition- return [facility] for LTC
[2024-03-13] MEDS: XALATAN OPHTHALMIC SOLUTION BOTH EYES (17:14)
[2024-03-13 17:41] LABS: Glucose - Point of Care 95 mg/dl (70-99)
--- NOTE | 2024-03-13 17:42 | W.PN.NEURO.1 ---
Today's Communication / Plan
-
Continue IV acyclovir and IV Keppra
Neuro Assessment/Plan
Assessment
63-year-old male with history of bilateral strokes with chronic left hemiparesis and new onset right sided weakness. He is currently lethargic. Possibly postictal versus encephalopathy secondary to viral syndrome
Plan
CT head without contrast. EEG. IV acyclovir 10 mg/kg body weight Q8 hourly. IV Keppra 1500 mg x 1. IV Keppra 500 every 12 maintenance. Consider lumbar puncture. Overall prognosis is guarded
Subjective/Objective
Subjective Data
Date of Service: March 13, 2024
Mr. Castillo is lethargic and difficult to arouse
Objective Data
Vital Signs
Temp Pulse Resp BP Pulse Ox
37.7 C 143 14 148/68 94
03/13/24 15:21 03/13/24 17:13 03/13/24 15:21 03/13/24 17:13 03/13/24 15:21
Lab Results
03/13/24 11:55
03/13/24 11:55
PT 17.0 Sec (11.4-14.6) H 03/12/24 04:25
INR 1.40 03/12/24 04:25
APTT 32.7 Sec (23.4-35.0) 03/12/24 04:25
Sodium 136 mmol/L (135-145) 03/13/24 11:55
Potassium 4.5 mmol/L (3.5-5.1) 03/13/24 11:55
BUN 40 mg/dl (9-20) H 03/13/24 11:55
Glucose 95 mg/dl (70-99) 03/13/24 11:55
Calcium 9.5 mg/dl (8.4-10.2) 03/13/24 11:55
LDL Cholesterol, Calc 94 mg/dl 03/13/24 11:55
Patient Allergies
No Known Allergies Allergy (Verified 03/12/24 04:56)
Review of Systems
-
Unable to obtain full review of systems at this time due to: Patient Non-verbal and Lethargy
Constitutional: Weakness
Physical Exam
-
General: Well Developed, Well Nourished, Appears in Distress and Appears Chronically Ill
Eyes: Able to visualize OU
HEENT: Normocephalic, Atraumatic and Other (Rash across left forehead)
Neck: No Bruits Bilaterally and Full Range of Motion
Respiratory: Clear to Auscultation
Cardiac: Regular Rhythm
GI: Normal Bowel Sounds
Skin: Rash
Extremities: No Clubbing, No Cyanosis and No Edema
Psych: Unable to Assess
Extended Neurological Exam
Mood & Affect: Unable to Assess
Attention Span & Concentration: Lethargic, Unable to Perform 2 Step Request, Unresponsive to Verbal Stimuli and Unresponsive to Physical Stimuli
Memory: Unable to Assess
Tremor: Unable to Assess
Involuntary Movement: None
Speech: Mute and Unable to Assess
Cranial Nerve II: Left Eye: Unable to Assess
Cranial Nerve II: Right Eye: Unable to Assess
Cranial Nerves III, IV, : Extraocular Movement: Reduced
Cranial Nerve V: Facial Sensation: Unable to Assess
Cranial Nerve VII: Facial Symmetry: Unable to Assess
Cranial Nerve VIII: Hearing: Unable to Assess
Cranial Nerves IX, X: Palate Movement: Unable to Assess
Cranial Nerve XI: Shoulder Shrug: Unable to Assess
Cranial Nerve XII: Tongue Protusion: Unable to Assess
Muscle Strength, Overall: Reduced Throughout
Muscle Bulk & Tone: Tone Unremarkable
Pronator Drift: Unable to Assess
Deep Tendon Reflexes: Trace Throughout
Cold Sensation: Unable to Assess
Vibration Sensation: Unable to Assess
Touch Sensation: Unable to Assess
Coordination: Unable to Assess
Babinski Sign: Present Bilaterally
Gait & Station: Unable to Assess
[2024-03-13] MEDS: NSS 1000 IV (18:33)
[2024-03-13] MEDS: LOVENOX 40 MG SC (18:34)
[2024-03-13 19:45] VITALS: BP 155/98
[2024-03-13 19:51] LABS: Glucose - Point of Care 100 mg/dl (70-99)
[2024-03-13] MEDS: KEPPRA 500 MG IV (20:58)
[2024-03-13 23:09] VITALS: BP 130/82
[2024-03-13 23:58] LABS: Glucose - Point of Care 109 mg/dl (70-99)
[2024-03-14] VITALS (11 sets, daily range): BP systolic 112–173; BP diastolic 49–103; BMI 29.3
[2024-03-14] MEDS: ZOVIRAX INJECTION 270 MG IV ×2 (00:01→08:21)
[2024-03-14] MEDS: LOPRESSOR 2.5 MG IV ×2 (00:02→06:10)
[2024-03-14 06:09] LABS: Glucose - Point of Care 118 mg/dl (70-99)
[2024-03-14 06:35] LABS: Hemoglobin 17.2 g/dL (13.0-18.0); Mean Corp Hgb Conc. 34.4 g/dL (33.0-37.0); Mean Corpuscular Hgb 30.6 pg (27.0-31.0); Mean Corpuscular Volume 88.8 fL (80.0-94.0); Mean Platelet Volume 10.1 fL (7.4-10.4); Platelet Count 225 10^3/uL (130-400); Red Blood Cell Count 5.63 10^6/uL (4.70-6.10); Red Cell Dist. Width 12.1 % (11.5-14.5); White Blood Cell Count 11.9 10^3/uL (4.8-10.8)
[2024-03-14 06:36] LABS: INR 1.23; PT 15.4 Sec (11.4-14.6)
[2024-03-14 06:52] LABS: Blood Urea Nitrogen 48 mg/dl (9-20); Calcium 9.6 mg/dl (8.4-10.2); Carbon Dioxide 18 mmol/L (22-30); Chloride 108 mmol/L (98-107); Estimated Creatinine Clearance 56 ml/min; Glucose 107 mg/dl (70-99); Potassium 4.6 mmol/L (3.5-5.1); Sodium 143 mmol/L (135-145); eGFR 48.72
[2024-03-14] MEDS: KEPPRA 500 MG IV ×2 (08:20→20:08)
[2024-03-14] MEDS: LOPRESSOR 5 MG IV ×4 (08:20→23:56)
[2024-03-14] MEDS: ASPIRIN 300 MG RECTAL (08:21)
--- NOTE | 2024-03-14 08:47 | W.PN.HOSP.TC ---
Today's Communication/Plan
-
IV antiviral, acyclovir. Plan for LP. Cardiac monitoring.
Assessment / Plan
Assessment / Plan
Physical exam:
General: Acutely ill
HEENT: Scabbed lesions on forehead. Normocephalic, Atraumatic and Moist Mucous Membranes
Respiratory: Bilateral rhonchi; Negative Crackles or Wheezes
Cardiac: Regular Rhythm, tachycardic, and S1/S2
GI: Soft, Nontender and Nondistended
Musculoskeletal: Contractures left side. No Clubbing, No Cyanosis and No Edema
Neuro: Lethargic, left hemiparesis, encephalopathic.
Psych: Lack of judgment and insight
A/P:
Toxic metabolic encephalopathy:
Likely infectious etiology and possible seizures but cannot rule out stroke and metabolic causes as well as medications contributing
Continue IV Keppra
Reviewed MRI findings-MRI of the brain-old right MCA infarct with encephalomalacia. Posterior limb of the internal capsule on the left-subacute infarct
Discussed with neurology today
Plan for LP today
Check LFTs and ammonia levels today
Updated sister over the phone today-->discussed about plan and poor prognosis.
Suspicion for herpes/varicella encephalitis:
IV acyclovir
ID on board
Plan for LP
NINI:
IV fluids, normal saline at 65 cc/h
Nephrology eval
Avoid nephrotoxic
Chronic systolic CHF:
Most GDMT medications on hold due to NINI
On IV Lopressor
Cardiology consult and appreciated input
Cardiology recommends increase Lopressor to 5 mg every 6 hours
Hypertension:
Increasing IV Lopressor
Hyperlipidemia:
Unable to take statins in the moment since n.p.o.
DVT/PE in the past:
Anticoagulation on hold due to upcoming procedure and possible strokes
Right MCA stroke with residual left hemiplegia:
On anticoagulation and statins but now on hold due to n.p.o. status
DVT prophylaxis:
On Lovenox-hold due to upcoming procedure, LP
CODE STATUS:
DNR
Prognosis guarded
Total time spent on today's encounter was 52 minutes which included time spent in counseling the patient/family regarding diagnosis and treatment plan as listed above, goals of care, and symptom management. Case was discussed with nursing staff,
specialists, and care coordinators/case management. All labs and imaging personally reviewed by me. Remainder the time spent in detailed review of previous records, lab data, imaging, and other medical provider documentation.
Anticipated Discharge: > 48 hours
Subjective/Interval History
-
Date of Service: March 14, 2024
Patient encephalopathic. Minimally responsive. Tachycardic and hypertensive earlier. Tmax 100.1 Fahrenheit
Objective Data
-
Labs:
Laboratory Results
03/14/24 03/14/24
05:01 05:02
WBC 11.9 H
Hgb 17.2
Hct 50.0
Plt Count 225
PT 15.4 H
INR 1.23
Sodium 143
Potassium 4.6
Chloride 108 H
Carbon Dioxide 18 L
BUN 48 H
Creatinine 1.6 H
Glucose 107 H
Calcium 9.6
Vital Signs:
Vital Signs
Temp Pulse Resp BP Pulse Ox
98.5 F 117 20 168/103 97
03/14/24 07:45 03/14/24 08:20 03/14/24 07:45 03/14/24 08:20 03/14/24 07:45
I&O
03/13/24 03/14/24 03/15/24
06:59 06:59 06:59
Intake Total 720 / 720 540 / 540
Output Total 200 / 200 200 / 200
Balance 520 / 520 340 / 340
--- NOTE | 2024-03-14 09:26 | EEG.RPT ---
Electroencephalogram Report
Recording
Date of EE03/14/24
Type of EEG: Routine
Length of EEG recordin minutes
Done with Video Recording: Yes
Patient Status: Inpatient
Recording Conditions: Awake and Drowsy
Hyperventilation Performed: No
Photic Stimulation Performed: Yes
Report
LESS THAN 1 HOUR REPORT
LESS THAN 1 HOUR EEG INTERPRETATION:
Moderately to severely abnormal study for age based on bursts of frontally predominant intermittent rhythmic delta activity (FIRDA) and generalized slowing demonstrated bihemispherically equally
CLINICAL CORRELATION:
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 A similar pattern has been demonstrated for this patient in prior studies
Clinical correlation is advised.
METHODS:
A 21 channel digitized electroencephalogram (EEG) was performed in the neurophysiology area. The 10/20 international system of electrode placement was used with ECG and lateral/vertical eye movements recorded. The [employer] quantitative EEG system
was utilized.
ELECTROENCEPHALOGRAPHER IMPRESSION(S):
Quality of study
Fair�good due to temporal artifact
Background
Medium amplitude
Fair anterior-posterior voltage gradient differentiation
Theta maximal background demonstrated
Sleep
Drowsiness present
Hyperventilation
Not performed
Photic Stimulation
Failed to activate the record
ECG
Normal rhythm
Abnormal Activity
Intermittent frontally predominant semi-rhythmic and rhythmic delta (1 to 2 Hz) activity lasting approximately 1 second which was of medium�high amplitude
--- NOTE | 2024-03-14 09:30 | PTOTSP ---
Speech Language Pathology
Cognitive-linguistic evaluation completed via the [facility] Coma Recovery Scale-Revised (CRS-R). Pt with a score of 4/23. Flexion withdrawal noted to noxious stimulation in B UEs with no response in LEs. Oral reflexive movement noted upon introduction
of tongue depressor into oral cavity. Eye opening with stimulation x1. Pt did not startle to auditory stimulation. Eyes closed majority of evaluation, but when manually opened by STRATIGRAPHY TEACHER, no visual tracking/fixation or blink to threat noted. No
attempts to answer yes/no questions during evaluation.
Pt also seen for dysphagia tx. Oral care completed with use of suction toothbrush. Some oral movements noted in response. Trialed piece of ice to lips. No response to lips. When touched to tongue, some oral movements noted, but these appeared
reflexive vs intentional. Further P.O. trials deferred.
Recommend:
(1) Strict NPO
(2) Oral care 4x/day with suctioning as needed
(3) Not appropriate for Aspiration Risk Hydration Protocol (ARHP)
(4) STRATIGRAPHY TEACHER ti continue to follow for dysphagia and cognitive-linguistic tx as appropriate.
--- NOTE | 2024-03-14 11:00 | W.PN.ID1 ---
Addendum entered and electronically signed by Julia Haywood MD 03/14/24 16:23:
CSF tube 4: 4 cells. Meningoencephalitis panel neg including neg VZV, HSV.
DC Acyclovir.
D/W Dr. Jose.
Original Note:
Date of Service
Date of Service: March 14, 2024
Today's Communication
See below.
Assessment / Plan
# Abrupt change in mental status
# Left V1 Zoster - healing crusting lesions. Unclear whether or not pt treated at [facility].
# Subacute left infarct
# hx large R MCA infarct
# NINI
- Possible VZV CARDROOM ATTENDANT vasculitis from recent V1 Zoster.
- For LP for cell count/dif, meningoencephalitis PCR panel, cx
- Continue Acyclovir 10mg/kg IV q8 (d2)
- Renal function has decreased.
Maintain adequate hydration.
Increase acyclovir diluent from 250 cc to 500cc. Appreciate pharmacist input.
-Aspiration precaution
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
HTN
HLD
hx R MCA CVA (2013), residual Left side weakness
HFrEF 15% to 20%
PE (2013)
Chronic pain
Right shoulder surgery
Chief Complaint
-: Other
Subjective / Review of Systems
Remains very lethargic.
Vital Signs / Physical Exam
Vital Signs
Vital Signs
Temp Pulse Resp BP Pulse Ox
98.5 F 117 20 132/78 97
03/14/24 07:45 03/14/24 09:30 03/14/24 07:45 03/14/24 09:30 03/14/24 07:45
Physical Exam
Constitutional: Acutely Ill
Cardiovascular: Regular Rate and S1/S2
Pulmonary: Clear (anteriorly)
Gastrointestinal: Soft, Non Tender, Non Distended and Normal Bowel Sounds
Extremities: Negative Edema
Neurological: Other (Lethargic)
Objective Data
Lab Data
Lab Results
03/14/24 05:02
03/14/24 05:01
PT 15.4 Sec (11.4-14.6) H 03/14/24 05:01
INR 1.23 03/14/24 05:01
APTT 32.7 Sec (23.4-35.0) 03/12/24 04:25
Estimated Creat Clear 56 ml/min 03/14/24 05:01
Total Bilirubin 2.4 mg/dl (0.2-1.3) H 03/12/24 04:25
AST 27 U/L (17-59) 03/12/24 04:25
ALT 24 U/L (0-50) 03/12/24 04:25
Alkaline Phosphatase 61 U/L (38-126) 03/12/24 04:25
Most recent labs reviewed.
Micro Results:
03/12/24 09:51 MRSA Screen - Final
Nose No Methicillin Resistant Staphylococcus aureus isolated.
03/12/24 CTA head/neck: No significant vascular occlusion, aneurysm or dissection.
03/12/24 Brain MRI: Old right MCA infarct with encephalomalacia and white matter chronic ischemic change/gliosis. Though no restricted diffusion to suggest right hemisphere acute infarct.
There is, however, linear restricted diffusion along the course of the posterior limb of the LEFT internal capsule, suggesting subacute infarct.
03/13/24 CXR negative
03/13/[address]: 1. No new acute intracranial abnormality. 2. Subacute infarct of the left internal capsule, and a large chronic infarct of the right MCA distribution.
Care Review
Plan reviewed with: Other (Pharmacist Jonnathan)
--- NOTE | 2024-03-14 11:16 | CON.CAR ---
Addendum entered and electronically signed by Fior Hoover MD 03/14/24 14:39:
I saw and examined the patient.
The Supervisor [employer]aving [employer] Splitting's note was reviewed and I agree with the note.
Comment: Patient unable to give history given change in mental status. He initially presented 03/12/2024 with left-sided weakness, left facial droop and acute change in mental status.
He was diagnosed with left internal capsule stroke on MRI 03/12/2024. CTA of head and neck were unremarkable. There are no obvious cardiac symptoms. Currently being treated for seizure in addition. There is also concern for Possible possibly
neurologic VZV and plan is for LP.
Cardiac status is fairly stable. With withdrawal of beta-higinio sinus tachycardia noted (possibly seizing at that point also). Beta-higinio IV was reinstituted.
He has known waxing and waning ejection fraction with heart failure with reduced ejection fraction. Currently given renal insufficiency TAMAR inhibitor/ARB/Arni/Aldactone on hold. Continue to reassess. Last ejection fraction with EF 15%. Eventually
could consider reassessment once stable from a neurologic point of view.
EKG reviewed.
Currently appears dehydrated and is receiving hydration. Follow volume status closely.
Original Note:
Consultation
Consultation Request
Date/Time Consultation Requested: 03/14/2024
Date/Time Consultation Performed: 03/14/2024
Requesting Provider: Dr. Stovall
Performing Provider: Kalie Khan PA-C for Dr. Fior Hoover
Reason for Consultation: Tachycardia, cardiomyopathy
Medical History
-
History of Present Illness:
Patient is a 63-year-old male from [facility] nursing [facility] with history of large right MCA stroke in 2013 with residual left-sided weakness, heart failure with reduced EF, waxing and waning cardiomyopathy, hypertension, hyperlipidemia,
pulmonary embolism/DVT (2013) on chronic anticoagulation with Eliquis who presented to ED on 03/11/24 due to LLE weakness and worsening L facial droop. Head CT no acute change, UA negative. He was discharged back to SNF. He returned to ED 03/12/24 with
dysarthria, persistent LLE weakness. Brain MRI 03/12/2024 showed old R MCA infarct, subacute left internal capsule infarct, CTA of head and neck showed no significant vascular occlusion, aneurysm or dissection. Patient then developed worsening
mental status/lethargy after presentation to emergency department. He was initially started on valacyclovir for concern for herpes zoster of his forehead then transition to acyclovir due to lethargy. Patient with poor oral intake since admission
with significant bump in creatinine from 0.9-1.6. Cardiology being asked to see patient for tachycardia and frequent PVCs in setting of known cardiomyopathy and chronic heart failure.
History unable to be obtained secondary to patient being obtunded. History obtained through review of medical records, discussion with coordinating care providers and nursing.
PMH:
Chronic heart failure with reduced ejection fraction
Nonischemic cardiomyopathy
Hypertension
Hyperlipidemia
Right MCA stroke with residual left hemiplegia January 2014
Chronic pain syndrome/polyneuropathy
Bilateral pulmonary embolism
Right lower extremity DVT
Chronic anticoagulation as outpatient with Eliquis
Past Medical History
Past Medical History: Other (See HPI)
Past Surgical History: Orthopedic (Right shoulder surgery) and Other (Angioplasty right lower extremity)
Social History
Tobacco: Former Smoker
Alcohol: Former
Drug: None
Living: Assisted ([facility])
Family History
Family History: Other (Father heart disease, renal failure. Mother: Colon/rectal cancer)
Allergies / Home Medications
Allergy/AdvReac Type Severity Reaction Status Date / Time
No Known Allergies Allergy Verified 03/12/24 04:56
�Medication �Instructions �Recorded �Confirmed �Type
apixaban 5 mg tablet (Eliquis) 5 mg PO BID Blood Clot 11/21/16 03/12/24 History
Prevention/Tx ##0
aspirin 81 mg tablet,delayed 81 mg PO DAILY Blood Clot 11/21/16 03/12/24 History
release Prevention/Tx ##0
latanoprost 0.005 % eye drops 1 drp BOTH EYES QPM Eye Condition 11/21/16 03/12/24 History
##0
spironolactone 25 mg tablet 12.5 mg PO DAILY Fluid 11/21/16 03/12/24 History
Retention/Swelling
atorvastatin 40 mg tablet 40 mg PO QPM ##0 11/26/16 03/12/24 Rx
acetaminophen 325 mg tablet 650 mg PO Q6HPRN PRN temp>100 03/11/24 03/12/24 History
acetaminophen 500 mg tablet 500 mg PO BID Pain 03/11/24 03/12/24 History
acetaminophen 500 mg tablet 500 mg PO Q4HPRN PRN mild pain 03/11/24 03/12/24 History
bisacodyl 10 mg rectal suppository 10 mg NV DAILYPRN PRN if mom 03/11/24 03/12/24 History
(Dulcolax (bisacodyl)) ineffective after 24hrs
carvedilol 6.25 mg tablet 6.25 mg PO BID Blood Pressure 03/11/24 03/12/24 History
empagliflozin 10 mg tablet 10 mg PO DAILY Diabetes 03/11/24 03/12/24 History
(Jardiance)
furosemide 20 mg tablet 20 mg PO DAILY Fluid 03/11/24 03/12/24 History
Retention/Swelling
gabapentin 300 mg capsule 300 mg PO DAILY Neurological 03/11/24 03/12/24 History
Condition
gabapentin 400 mg capsule 400 mg PO HS Neurological Condition 03/11/24 03/12/24 History
loperamide 2 mg tablet (Imodium 2 mg PO [id number] PRN diarrhea 03/11/24 03/12/24 History
A-D)
magnesium hydroxide 400 mg/5 mL 30 ml PO DAILYPRN PRN constipation 03/11/24 03/12/24 History
oral suspension (Milk of Magnesia)
melatonin 5 mg tablet 5 mg PO HS Sleep 03/11/24 03/12/24 History
sacubitril 49 mg-valsartan 51 mg 1 tab PO BID Heart 03/11/24 03/12/24 History
tablet (Entresto) Disease/Condition
sodium phosphates 19 gram-7 118 ml NV DAILYPRN PRN if dulcolax 03/11/24 03/12/24 History
gram/118 mL enema (Fleet Enema) is ineffective after 24hrs
tramadol 50 mg tablet 50 mg PO BID Pain 03/11/24 03/12/24 History
Review of Systems
-
Unable to obtain full review of systems at this time due to: Other (Altered mental status)
History Source: Transfer Record, Coordinating Provider and Other (Nursing)
Physical Exam
Vital Signs
Temp Pulse Resp BP Pulse Ox
98.5 F 117 20 132/78 97
03/14/24 07:45 03/14/24 09:30 03/14/24 07:45 03/14/24 09:30 03/14/24 07:45
GEN: No distress, obtunded, sitting in bed
HEENT: supple, anicteric, mmm
LUNGS: Few faint expiratory wheezes otherwise CTA anteriorly
CV: Reg with occasional ectopy, mildly tachycardic, S1/S2, no murmur, rub or gallop
ABD: soft, BS+, NT/ND
EXT: No edema, clubbing or cyanosis
NEURO: Obtunded and responsive to painful stimuli only
SKIN: Healing scabbed lesions of forehead otherwise no rash, warm, dry, pink
Lab Results
03/14/24 05:02
03/14/24 05:01
Troponin I Cancelled 03/12/24 22:00
Impression / Plan
-
PCP: Apolinar Espinoza
Mattress Stripper: Dr. Dougherty
Impression:
Presented 03/12/2024 with left-sided weakness, left facial droop
Altered mental status
Subacute left internal capsule stroke on MRI 03/12/2024
Seizure
NINI, suspect dehydration
Tachycardia
Frequent PVCs
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
Chronic heart failure with reduced ejection fraction
Cardiomyopathy
Hypertension
Hyperlipidemia
Right MCA stroke with residual left hemiplegia January 2014
Chronic pain syndrome/polyneuropathy
Bilateral pulmonary embolism 2013
Right lower extremity DVT
Chronic anticoagulation as outpatient with Eliquis
ECHO 10/28/2023: EF 15-20%, mild concentric LVH. No significant valvular disease
Echocardiogram November 2016: Ejection fraction 35 to 40%�������
Echocardiogram September 2014: Ejection fraction 10%�������
Echocardiogram January 2014: Ejection fraction 10%
Lexiscan sestamibi stress test November 2014: Large minimally reversible defect(s) in the anteroseptal segment and the lateral and inferior segments and the apical segment consistent with infarction with residual ischemia there is also artifact noted.
Severely Reduced systolic function. The ejection fraction is 22%. This is a high risk study.
Plan:
-Presented 03/12/2024 with left-sided weakness, left facial droop and acute change in mental status
-Noted to have subacute left internal capsule stroke on MRI 03/12/2024. CTA of head and neck were unremarkable for occlusion dissection or stenosis.
-Noted to have abnormal EEG 03/14/2024 with bursts of frontally predominant intermittent rhythmic delta activity (FIRDA) and generalized slowing demonstrated bihemispherically equally. Patient being followed by neurology and getting IV Keppra.
-Concern for Possible VZV [employer] vasculitis from recent V1 Zoster. Being followed by ID and neurology. Plan is for LP for cell count/dif, meningoencephalitis PCR panel, cx. Continue acyclovir
-NINI with bump in creatinine from 0.9-1.6. Likely secondary to dehydration secondary to poor oral intake. Continue IV fluid resuscitation. Jardiance, Entresto and Aldactone currently on hold.
-Chronic heart failure with reduced ejection fraction/cardiomyopathy. Has had waxing and waning ejection fraction through the years. Last echo in October 2023 showed EF of 15 to 20%. Patient has declined ICD implant or cardiac testing previously.
-On appropriate GDMT as outpt with Coreg, Entresto, Aldactone and Jardiance. Entresto, Aldactone and Jardiance on hold secondary to NINI and lethargy.
-Tachycardia with frequent PVCs noted on telemetry. Getting 2.5 mg IV Lopressor given patient is obtunded. Will increase to 5 mg IV every 6 hours given tachycardia, PVCs and hypertension
-Does not appear to be acutely volume overloaded on examination and weight down 10 pounds currently compared to prior weight of 238 pounds as outpatient in November 2023. Currently on room air with good oxygen saturation
-Consider repeating echo once patient more stable, can be done as outpatient to reassess LV function as patient had been placed on Entresto at outpatient office visit in November 2023
-Known hypertension. Patient has been relatively hypertensive throughout admission as he is off antihypertensives given NINI and lethargy. Will increase IV Lopressor 5 mg Q6 and uptitrate as needed for control of tachycardia and hypertension.
-History of DVT and PE. Chronic anticoagulation as outpatient with Eliquis. Currently getting Lovenox
HPI 03/14/2024:
Patient is a 63-year-old male from [facility] with history of large right MCA stroke in 2013 with residual left-sided weakness, heart failure with reduced EF, waxing and waning cardiomyopathy, hypertension, hyperlipidemia,
pulmonary embolism/DVT (2013) on chronic anticoagulation with Eliquis who presented to ED on 03/11/24 due to LLE weakness and worsening L facial droop. Head CT no acute change, UA negative. He was discharged back to SNF. He returned to ED 03/12/24 with
dysarthria, persistent LLE weakness. Brain MRI 03/12/2024 showed old R MCA infarct, subacute left internal capsule infarct, CTA of head and neck showed no significant vascular occlusion, aneurysm or dissection. Patient then developed worsening
mental status/lethargy after presentation to emergency department. He was initially started on valacyclovir for concern for herpes zoster of his forehead then transition to acyclovir due to lethargy. Patient with poor oral intake since admission
with significant bump in creatinine from 0.9-1.6. Cardiology being asked to see patient for tachycardia and frequent PVCs in setting of known cardiomyopathy and chronic heart failure.
History unable to be obtained secondary to patient being obtunded. History obtained through review of medical records, discussion with coordinating care providers and nursing.
Data Reviewed
-
EKG: Report Reviewed by me, Discussed with Physician and Discussed with Nurse
CT Scan: Report Reviewed by me, Discussed with Physician and Discussed with Nurse
MRI: Report Reviewed by me, Discussed with Physician and Discussed with Nurse
Labs: Labs Reviewed by me
Old Records: Reviewed
[2024-03-14 11:30] LABS: Glucose - Point of Care 131 mg/dl (70-99)
--- NOTE | 2024-03-14 11:46 | PTCARENOTE ---
Addendum entered by Megan Valle RN 03/14/24 12:13:
pt remains to be unable to verbally communicate. but with this nurse and pct the patient was wiggling left toes in response to saying 'yes' to questions and education on tests that he would be going to this afternoon. pt lopressor increased to 5mg
q6hr to help manage heart rate and blood pressure. pt currenty down getting LP in [facility].
Original Note:
this nurse reached out to MD about accuchecks. per pt sister danika and pt hx and chart patient is not a diabetic and hgbA1c was 5.3. sugar checks to be discontinued. pt to go down for LP this afternoon. lovenox on hold, SCDS added to patient
interventions. b/l heel and elbow relief pads added to prevent skin breakdown as well as one for patient sacrum
[2024-03-14] MEDS: LOPRESSOR IV (12:17)
--- NOTE | 2024-03-14 13:47 | CM ---
Reviewed the chart notes and spoke with the patient at the bedside. Patient able to answer yes by wiggling left toes. CM continues to be available to patient/family and is monitoring medical plan for needs at discharge.
Plan: Discharge back to [facility] when medically stable. No precert required.
--- NOTE | 2024-03-14 14:01 | PTCARENOTE ---
vitals obtained upon return to the floor. IVF and lopressor that was for 1200 now given since patient was off unit for initial timed administration. pt SCDS now in place as well
[2024-03-14] MEDS: NSS 1000 IV (14:04)
[2024-03-14 14:07] LABS: Spinal Fluid Glucose 72 mg/dl (40-70); Spinal Fluid Protein 106 mg/dl (12-60)
--- NOTE | 2024-03-14 15:11 | W.PN.NEURO.1 ---
Today's Communication / Plan
-
Continue newly initiated levetiracetam 500 mg every 12 hours
Agree with pending lumbar puncture
Increasing creatinine is of concern and should be followed
Continue aspirin 300 mg per rectum, return to apixaban instead when patient able to take by mouth
Provide medical educational materials
Neuro Assessment/Plan
Assessment
63-year-old male with history of bilateral strokes with chronic left hemiparesis and new onset right sided weakness.
Based on forehead rash, the possibility of herpes zoster encephalitis is present
EEG was not specific for herpes encephalitis. Overall prognosis is guarded
Plan
Continue newly initiated levetiracetam 500 mg every 12 hours
Agree with pending lumbar puncture
Increasing creatinine is of concern and should be followed
Continue aspirin 300 mg per rectum, return to apixaban instead when patient able to take by mouth
Goal of normotension
Goal of normoglycemia
DVT prophylaxis
Provide medical educational materials
Will follow pending results
Subjective/Objective
Subjective Data
Date of Service: March 14, 2024
Objective Data
Vital Signs
Temp Pulse Resp BP Pulse Ox
37.8 C 104 18 156/98 96
03/14/24 14:45 03/14/24 14:45 03/14/24 14:45 03/14/24 14:45 03/14/24 14:45
Lab Results
03/14/24 05:02
03/14/24 05:01
PT 15.4 Sec (11.4-14.6) H 03/14/24 05:01
INR 1.23 03/14/24 05:01
APTT 32.7 Sec (23.4-35.0) 03/12/24 04:25
Sodium 143 mmol/L (135-145) 03/14/24 05:01
Potassium 4.6 mmol/L (3.5-5.1) 03/14/24 05:01
BUN 48 mg/dl (9-20) H 03/14/24 05:01
Glucose 107 mg/dl (70-99) H 03/14/24 05:01
Calcium 9.6 mg/dl (8.4-10.2) 03/14/24 05:01
LDL Cholesterol, Calc 94 mg/dl 03/13/24 11:55
Patient Allergies
No Known Allergies Allergy (Verified 03/12/24 04:56)
Data Reviewed
-
MRI Head: Report Reviewed
Labs: Report Reviewed
Reviewed with: Physician and Nurse Practioner
Old Records: Summarized
Past History
Past History
ED Past Medical History: CHF (EF of 10%), CVA (Right MCA infarct January 2014), HTN, Hypercholesterolemia, Other (Bilateral pulmonary embolism January 2014, DVT) and Other (Stroke Large R MCA 01/2014)
ED Past Surgical History: Orthopedic (R LE stent and R shoulder) and Other
Social History
Tobacco: Former smoker
Alcohol: Occasional
Drug: Former user, Narcotics and IVDA
Personal:
Living: residential
Employment: Employed
Family History
Family History: Diabetes
Medications
-
Medications:
Generic Name Dose Route Start Last Admin
Trade Name Freq PRN Reason Stop Dose Admin
Acetaminophen 650 mg 03/13/24 08:53
Acetaminophen 650 Mg Rectal Suppository RECTAL 04/10/24 08:52
Q6HPRN PRN
pain, fever
Apixaban 5 mg 03/12/24 09:11 03/13/24 08:50
Apixaban (Eliquis) 5 Mg Tablet PO 04/09/24 09:10 Not Given
BID BROOKE
Aspirin 300 mg 03/13/24 09:00 03/14/24 08:21
Aspirin 300 Mg Rectal Suppository RECTAL 04/10/24 08:59 300 mg
DAILY BROOKE Administration
Atorvastatin Calcium 80 mg 03/12/24 18:00 03/12/24 17:12
Atorvastatin (Lipitor) 40 Mg Tablet PO 04/09/24 17:59 80 mg
QPM BROOKE Administration
Carvedilol 12.5 mg 03/12/24 20:00 03/13/24 08:49
Carvedilol 12.5 Mg Tablet PO 04/09/24 19:59 Not Given
BID BROOKE
Enoxaparin Sodium 40 mg 03/13/24 19:00 03/13/24 18:34
Enoxaparin Sodium 40 Mg/0.4 Ml Syringe SC 04/10/24 18:59 40 mg
QPM BROOKE Administration
Gabapentin 400 mg 03/12/24 22:00 03/12/24 21:36
Gabapentin 400 Mg Capsule PO 04/09/24 21:59 Not Given
HS BROOKE
Gabapentin 300 mg 03/12/24 20:00 03/13/24 08:50
Gabapentin 300 Mg Capsule PO 04/09/24 19:59 Not Given
BID BROOKE
Acyclovir Sodium 1,000 mg/ 520 mls @ 520 mls/hr 03/14/24 16:00
Sodium Chloride IV 03/24/24 15:59
Q8 BROOKE
Sodium Chloride 1,000 mls @ 65 mls/hr 03/14/24 12:00 03/14/24 14:04
Nss IV 1,000 mls
.[id number] BROOKE Administration
Latanoprost 1 drop 03/12/24 18:00 03/13/24 17:14
Latanoprost 0.005% (Ophthalmic Solution) 2.5 Ml Bottle BOTH EYES 04/09/24 17:59 Not Given
QPM BROOKE
Levetiracetam 500 mg 03/13/24 20:00 03/14/24 08:20
Levetiracetam (100 Mg/Ml) 500 Mg/5 Ml Vial IV 04/10/24 19:59 500 mg
Q12 BROOKE Administration
Metoprolol Tartrate 5 mg 03/14/24 12:00 03/14/24 14:04
Metoprolol 5 Mg/5 Ml Vial IV 04/11/24 11:59 5 mg
Q6 BROOKE Administration
Sacubitril/Valsartan 1 tab 03/12/24 09:11 03/13/24 08:50
Sacubitril 49 Mg/Valsartan 51 Mg (Entresto) Tab PO 04/09/24 09:10 Not Given
BID BROOKE
Sodium Chloride 0 flush 03/12/24 10:00
Sodium Chloride 0.9% (Flush) Syringe IV 04/09/24 09:59
PER PROTOCOL BROOKE
[2024-03-14 15:14] LABS: CSF Clarity Clear; CSF Color Colorless; CSF Tube # 4; Red Cell Count/CSF 1 mm^3; White Cell Count/CSF 4 mm^3 (0-5)
[2024-03-14 15:15] LABS: CSF Color Colorless; CSF Granulocytes 2 %; CSF Lymphocytes 97 %; CSF Tube # 1; CSF Tube # Clarity Clear; Red Cell Count/CSF 3 mm^3; Spinal Fluid Macrophages 1 %
[2024-03-14 15:18] LABS: White Blood Cell Count/CSF 6 mm^3 (0-5)
[2024-03-14] MEDS: ZOVIRAX INJECTION 520 MG IV (16:07)
--- NOTE | 2024-03-14 16:35 | W.CON.NEPH ---
Consultation
-
Date/Time Consultation Requested: 03/14/24 0852
Date/Time Consultation Performed: 03/14/24 1645
Requesting Provider: Loy Carlisle
Performing Provider: Lucie Carranza
Reason for Consultation: NINI
Medical History
-
Chief Complaint: weakness
History of Present Illness:
Patient is a 63-year-old male from [facility] with history of large right MCA stroke in 2013 with residual left-sided weakness, heart failure with reduced EF, waxing and waning cardiomyopathy on Entresto, Aldactone, lasix,
Jardiance, hypertension on coreg, hyperlipidemia on statin, pulmonary embolism/DVT (2013) on chronic anticoagulation with Eliquis who presented to ED on 03/11/24 due to LLE weakness and worsening L facial droop. W/u was neg and sent back to SNF.
Patient returned to the ED several hours later again complaining of weakness and worsened speech. Brain MRI 03/12/2024 showed old R MCA infarct, subacute left internal capsule infarct, underwent CTA of head and neck showed no significant vascular
occlusion, aneurysm or dissection. Patient then developed worsening mental status/lethargy after presentation to emergency department. He was initially started on valacyclovir for concern for herpes zoster/encephalitis then transition to acyclovir
due to lethargy. Reportedly had zoster left forehead 5weeks ago and lesions all healed now. Patient with poor oral intake since admission with significant bump in creatinine from 0.9-1.6. Nephrology consult requested.
History is limited due to AMS, most of the history obtained through records. No hypotension noted, no fever.
Past Medical History
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
Bilateral Pulmonary Embolism
RLE DVT
Hypertension
Chronic HFrEF
Chronic Pain / Polyneuropathy
Past Surgical History: Other (Right Shoulder Surgery)
Social History
Tobacco: Former Smoker (quit 2016, 40pack year)
Alcohol: Former
Drug: Other (History of amphetamine abuse. None in several years)
Family History
Mother with CHF
Father with kidney disease-on HD in his late 80s, diseased
Allergies / Home Medications
Allergy/AdvReac Type Severity Reaction Status Date / Time
No Known Allergies Allergy Verified 03/12/24 04:56
�Medication �Instructions �Recorded �Confirmed �Type
apixaban 5 mg tablet (Eliquis) 5 mg PO BID Blood Clot 11/21/16 03/12/24 History
Prevention/Tx ##0
aspirin 81 mg tablet,delayed 81 mg PO DAILY Blood Clot 11/21/16 03/12/24 History
release Prevention/Tx ##0
latanoprost 0.005 % eye drops 1 drp BOTH EYES QPM Eye Condition 11/21/16 03/12/24 History
##0
spironolactone 25 mg tablet 12.5 mg PO DAILY Fluid 11/21/16 03/12/24 History
Retention/Swelling
atorvastatin 40 mg tablet 40 mg PO QPM ##0 11/26/16 03/12/24 Rx
acetaminophen 325 mg tablet 650 mg PO Q6HPRN PRN temp>100 03/11/24 03/12/24 History
acetaminophen 500 mg tablet 500 mg PO BID Pain 03/11/24 03/12/24 History
acetaminophen 500 mg tablet 500 mg PO Q4HPRN PRN mild pain 03/11/24 03/12/24 History
bisacodyl 10 mg rectal suppository 10 mg HI DAILYPRN PRN if mom 03/11/24 03/12/24 History
(Dulcolax (bisacodyl)) ineffective after 24hrs
carvedilol 6.25 mg tablet 6.25 mg PO BID Blood Pressure 03/11/24 03/12/24 History
empagliflozin 10 mg tablet 10 mg PO DAILY Diabetes 03/11/24 03/12/24 History
(Jardiance)
furosemide 20 mg tablet 20 mg PO DAILY Fluid 03/11/24 03/12/24 History
Retention/Swelling
gabapentin 300 mg capsule 300 mg PO DAILY Neurological 03/11/24 03/12/24 History
Condition
gabapentin 400 mg capsule 400 mg PO HS Neurological Condition 03/11/24 03/12/24 History
loperamide 2 mg tablet (Imodium 2 mg PO [id number] PRN diarrhea 03/11/24 03/12/24 History
A-D)
magnesium hydroxide 400 mg/5 mL 30 ml PO DAILYPRN PRN constipation 03/11/24 03/12/24 History
oral suspension (Milk of Magnesia)
melatonin 5 mg tablet 5 mg PO HS Sleep 03/11/24 03/12/24 History
sacubitril 49 mg-valsartan 51 mg 1 tab PO BID Heart 03/11/24 03/12/24 History
tablet (Entresto) Disease/Condition
sodium phosphates 19 gram-7 118 ml HI DAILYPRN PRN if dulcolax 03/11/24 03/12/24 History
gram/118 mL enema (Fleet Enema) is ineffective after 24hrs
tramadol 50 mg tablet 50 mg PO BID Pain 03/11/24 03/12/24 History
Review of Systems
-
unable to obtain since pt is lethargic
Physical Exam
Vital Signs
Vital Signs
Temp Pulse Resp BP Pulse Ox
100.1 F 104 18 156/98 96
03/14/24 14:45 03/14/24 14:45 03/14/24 14:45 03/14/24 14:45 03/14/24 14:45
Lab Results
WBC 11.9 10^3/uL (4.8-10.8) H 03/14/24 05:02
RBC 5.63 10^6/uL (4.70-6.10) 03/14/24 05:02
Hgb 17.2 g/dL (13.0-18.0) 03/14/24 05:02
Hct 50.0 % (39.0-52.0) 03/14/24 05:02
Plt Count 225 10^3/uL (130-400) 03/14/24 05:02
Sodium 143 mmol/L (135-145) 03/14/24 05:01
Potassium 4.6 mmol/L (3.5-5.1) 03/14/24 05:01
Chloride 108 mmol/L (98-107) H 03/14/24 05:01
Carbon Dioxide 18 mmol/L (22-30) L 03/14/24 05:01
BUN 48 mg/dl (9-20) H 03/14/24 05:01
Creatinine 1.6 mg/dL (0.7-1.3) H 03/14/24 05:01
eGFR 48.72 03/14/24 05:01
Glucose 107 mg/dl (70-99) H 03/14/24 05:01
Calcium 9.6 mg/dl (8.4-10.2) 03/14/24 05:01
03/12/24:
CTA head and neck:
IMPRESSION: No significant vascular occlusion, aneurysm or dissection.
CT head:03/13/24:
IMPRESSION:
1. No new acute intracranial abnormality.
2. Subacute infarct of the left internal capsule, and a large chronic infarct of the right MCA distribution.
CXR:
IMPRESSION:
No acute cardiopulmonary process.
10/2023:
echo:
CONCLUSIONS
Normal left ventricular size. Severely reduced systolic function. Global
hypokinesis. Wall motion analysis is limited by the image quality. LV
ejection fraction is visually 15-20 %. Mild concentric left ventricular
hypertrophy. Diastolic function indeterminate.
Since echocardiogram 11/24/2016 which was reviewed, ejection fraction is
decreased from 35-40% to 15-20%.
Physical Exam
General: No Distress and Nontoxic
HEENT: Anicteric and No JVD
Respiratory: Clear, Normal Excursion and Nonlabored Respirations
Cardiac: S1/S2 and Regular Rate/Rhythm
Breast: Deferred by me
Abdomen: Soft, Nontender and Nondistended
Musculoskeletal: No Cyanosis and No Edema
Skin: No Rash and Warm
Neuro: Other (obtunded)
Psych: Other (obtunded)
Data Reviewed
-
Radiology: Report Reviewed by me
Labs: Labs Reviewed by me and Discussed with Family
Assessment/Plan
-
IMP:
Toxic metabolic encephalopathy
Posterior limb of the internal capsule on the left-subacute infarct
Suspicion for herpes/varicella encephalitis
NINI
Chronic systolic CHF EF 15-20%
Hypertension
Hyperlipidemia
h/o DVT/PE
h/o Right MCA stroke with residual left hemiplegia
Plan:
A/w worsening weakness and speech difficulty-new subacute CVA
however now also concern of herpes encephalitis -Acyclovir initiated
NINI-baseline cr 0.9 on admit now at 1.6
UA is bland and monitor bladder scan, SC x1 200cc
suspect possible ANKUSH+prerenal, contrast exposure on 03/12
would avoid nephrotoxins and hold Entresto, Aldactone, jardiance and lasix
agree with IVF specially on IV acyclovir, vol status seem stable
BP stable with out hypotension on Iv BB
s/p LP today, neuro follows on keppra too
adjust meds renally
if cr worsens may need renal US
labs in am
d/w family
[2024-03-14 16:41] LABS: Ammonia < 9 umol/L (9-30)
[2024-03-14 16:43] LABS: ALT (SGPT) 22 U/L (0-50); AST (SGOT) 32 U/L (17-59); Albumin 4.5 g/dl (3.5-5.0); Alkaline Phosphatase 59 U/L (38-126); Direct Bilirubin 0.2 mg/dl (0.0-0.4); Total Bilirubin 2.6 mg/dl (0.2-1.3)
[2024-03-14] MEDS: XALATAN OPHTHALMIC SOLUTION BOTH EYES (17:28)
[2024-03-15] VITALS (11 sets, daily range): BP systolic 112–182; BP diastolic 74–116; BMI 29.1
[2024-03-15] MEDS: NSS 1000 IV (05:57)
[2024-03-15] MEDS: LOPRESSOR 5 MG IV (05:58)
[2024-03-15 08:15] LABS: % Basophils 0.2 % (0-2); % Immature Granulocytes 0.4 % (0-0.5); % Lymphocytes 8.5 % (20.5-51.1); % Neutrophils 81.9 % (42.2-75.2); Absolute Lymphocytes 0.9 10^3/uL (1.2-3.4); Absolute Monocytes 0.9 10^3/uL (0.1-0.6); Absolute Neutrophils 8.4 10^3/uL (1.4-6.5); Hematocrit 46.5 % (39.0-52.0); Hemoglobin 15.6 g/dL (13.0-18.0); Mean Corp Hgb Conc. 33.5 g/dL (33.0-37.0); Mean Corpuscular Hgb 29.9 pg (27.0-31.0); Mean Corpuscular Volume 89.1 fL (80.0-94.0); Mean Platelet Volume 9.9 fL (7.4-10.4); Nucleated Red Blood Cells % 0 % (-); Platelet Count 220 10^3/uL (130-400); Red Blood Cell Count 5.22 10^6/uL (4.70-6.10); Red Cell Dist. Width 12.4 % (11.5-14.5); White Blood Cell Count 10.2 10^3/uL (4.8-10.8)
--- NOTE | 2024-03-15 08:30 | W.PN.CARDCBS ---
Addendum entered and electronically signed by Leroy Adler DO 03/15/24 10:55:
I saw and examined the patient.
The System Software Developer's note was reviewed and I agree with the note.
Comment:
Plan:
IV lopressor increased for better HR control
Eventual resume oral meds once taking POs
Cont supportive care of CVA
Receiving IVF for acute renal failure
Outpt cardiac follow up.
Original Note:
Today's Communication / Plan
-
Increase IV Lopressor to 7.5 mg Q6 hours
Check CXR
Check proBNP
Consider testing for COVID-19
LP results and BMP pending
Eventual resumption of GDMT for HF once renal function and TME improve
Impression / Plan
-
PCP: Apolinar Espinoza
Hand Cultivator: Dr. Dougherty
Impression:
Presented 03/12/2024 with left-sided weakness, left facial droop
Altered mental status/TME
Subacute left internal capsule stroke on MRI 03/12/2024
Seizure
NINI, suspect dehydration
Tachycardia
Frequent PVCs
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
Chronic heart failure with reduced ejection fraction
Cardiomyopathy
Hypertension
Hyperlipidemia
Right MCA stroke with residual left hemiplegia January 2014
Chronic pain syndrome/polyneuropathy
Bilateral pulmonary embolism 2013
Right lower extremity DVT
Chronic anticoagulation as outpatient with Eliquis
ECHO 10/28/2023: EF 15-20%, mild concentric LVH. No significant valvular disease
Echocardiogram November 2016: Ejection fraction 35 to 40%�������
Echocardiogram September 2014: Ejection fraction 10%�������
Echocardiogram January 2014: Ejection fraction 10%
Lexiscan sestamibi stress test November 2014: Large minimally reversible defect(s) in the anteroseptal segment and the lateral and inferior segments and the apical segment consistent with infarction with residual ischemia there is also artifact noted.
Severely Reduced systolic function. The ejection fraction is 22%. This is a high risk study.
Plan:
-Presented 03/12/2024 with left-sided weakness, left facial droop and acute change in mental status
-Noted to have subacute left internal capsule stroke on MRI 03/12/2024. CTA of head and neck were unremarkable for occlusion dissection or stenosis.
-Noted to have abnormal EEG 03/14/2024 with bursts of frontally predominant intermittent rhythmic delta activity (FIRDA) and generalized slowing demonstrated bihemispherically equally. Patient being followed by neurology and getting IV Keppra.
-Concern for Possible VZV ADMITTING CLERK vasculitis from recent Zoster. Being followed by ID and neurology. Underwent LP 03/14/24 - results pending. Continue acyclovir
-Now febrile with very course breath sounds. Would check CXR and consider testing for COVID given he is [facility] patient.
-NINI with bump in creatinine from 0.9-1.6. Labs today pending.
-Likely secondary to dehydration secondary to poor oral intake and from IV contrast from CT.
-Continue IV fluid resuscitation.
-Jardiance, Entresto and Aldactone currently on hold. Eventual resumption once renal function TME improves
-Chronic heart failure with reduced ejection fraction/cardiomyopathy. Has had waxing and waning ejection fraction through the years. Last echo in October 2023 showed EF of 15 to 20%. Patient has declined ICD implant or cardiac testing previously.
-Weight down 12 lbs since previous OV. Has new course BS and fever. Check CXR, will add on proBNP
-On appropriate GDMT as outpt with Coreg, Entresto, Aldactone and Jardiance. Entresto, Aldactone and Jardiance on hold secondary to NINI and lethargy. Eventual resumption once renal function TME improves.
-Consider repeating echo once patient more stable, can be done as outpatient to reassess LV function as patient had been placed on Entresto at outpatient office visit in November 2023
-Tachycardia with frequent PVCs (runs of ventricular bigeminy and trigeminy) noted on telemetry. Will increase to 7.5 mg IV every 6 hours given tachycardia, PVCs and uncontrolled hypertension.
-Mag stable 2.8, K+ pending
-Known hypertension. Patient has been relatively hypertensive throughout admission as he is off antihypertensives given NINI and lethargy. Will increase IV Lopressor 7.5 mg Q6 and uptitrate as needed for control of tachycardia and hypertension.
Hopeful resumption of eventual outpatient GDMT
-History of DVT and PE. Chronic anticoagulation as outpatient with Eliquis. Currently getting Lovenox
Discussed with nursing and primary service
HPI 03/14/2024:
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
pulmonary embolism/DVT (2013) on chronic anticoagulation with Eliquis who presented to ED on 03/11/24 due to LLE weakness and worsening L facial droop. Head CT no acute change, UA negative. He was discharged back to SNF. He returned to ED 03/12/24 with
dysarthria, persistent LLE weakness. Brain MRI 03/12/2024 showed old R MCA infarct, subacute left internal capsule infarct, CTA of head and neck showed no significant vascular occlusion, aneurysm or dissection. Patient then developed worsening
mental status/lethargy after presentation to emergency department. He was initially started on valacyclovir for concern for herpes zoster of his forehead then transition to acyclovir due to lethargy. Patient with poor oral intake since admission
with significant bump in creatinine from 0.9-1.6. Cardiology being asked to see patient for tachycardia and frequent PVCs in setting of known cardiomyopathy and chronic heart failure.
History unable to be obtained secondary to patient being obtunded. History obtained through review of medical records, discussion with coordinating care providers and nursing.
Progress Note - Hand Cultivator
Subjective
Date of Service: March 15, 2024
Pt seen and examined. He remains lethargic/obtunded.
New fever this am with very course breath sounds
Objective
Labs:
03/15/24 07:55
Labs
Hgb 15.6 g/dL (13.0-18.0) 03/15/24 07:55
Hct 46.5 % (39.0-52.0) 03/15/24 07:55
Plt Count 220 10^3/uL (130-400) 03/15/24 07:55
PT 15.4 Sec (11.4-14.6) H 03/14/24 05:01
INR 1.23 03/14/24 05:01
APTT 32.7 Sec (23.4-35.0) 03/12/24 04:25
Sodium 143 mmol/L (135-145) 03/14/24 05:01
Potassium 4.6 mmol/L (3.5-5.1) 03/14/24 05:01
BUN 48 mg/dl (9-20) H 03/14/24 05:01
Creatinine 1.6 mg/dL (0.7-1.3) H 03/14/24 05:01
Glucose 107 mg/dl (70-99) H 03/14/24 05:01
Troponins
03/12/24 03/12/24 03/12/24
10:00 16:00 22:00
Troponin I Cancelled Cancelled Cancelled
Vital Signs and I&O:
Vital Signs
Temp Pulse Resp BP Pulse Ox
100.7 F H 107 22 159/86 93
03/15/24 07:45 03/15/24 07:45 03/15/24 07:45 03/15/24 07:45 03/15/24 07:45
Vital Signs
Temp Pulse Resp BP Pulse Ox
100.7 F H 107 22 159/86 93
03/15/24 07:45 03/15/24 07:45 03/15/24 07:45 03/15/24 07:45 03/15/24 07:45
Intake & Output
03/13/24 03/14/24 03/15/24 03/16/24
06:59 06:59 06:59 06:59
Intake Total 720 / 720 540 / 540 1195 / 1195
Output Total 200 / 200 200 / 200 1600 / 1600
Balance 520 / 520 340 / 340 -405 / -405
Physical Exam
Physical Exam
GEN: No distress, obtunded, sitting in bed
HEENT: supple, anicteric, mmm
LUNGS: Course breath sounds bilaterally, on room air
CV: Reg with ectopy, mildly tachycardic, S1/S2, no murmur, rub or gallop
ABD: soft, BS+, NT/ND
EXT: No edema, clubbing or cyanosis
NEURO: Obtunded and responsive to painful stimuli only
SKIN: Healing scabbed lesions of forehead otherwise no rash, warm, dry, pink
[2024-03-15 08:45] LABS: Blood Urea Nitrogen 54 mg/dl (9-20); Calcium 9.5 mg/dl (8.4-10.2); Carbon Dioxide 20 mmol/L (22-30); Chloride 118 mmol/L (98-107); Estimated Creatinine Clearance 60 ml/min; Glucose 129 mg/dl (70-99); Magnesium 2.8 mg/dl (1.6-2.3); Potassium 4.5 mmol/L (3.5-5.1); Sodium 150 mmol/L (135-145); eGFR 52.64
[2024-03-15] MEDS: TYLENOL/FEVERALL 650 MG RECTAL ×2 (09:00→11:56)
[2024-03-15] MEDS: ASPIRIN 300 MG RECTAL (09:00)
[2024-03-15] MEDS: KEPPRA 500 MG IV ×2 (09:01→19:39)
[2024-03-15 09:32] LABS: Lactic Acid 1.5 mmol/L (0.7-2.0)
[2024-03-15] MEDS: D5W 1000 IV (09:53)
[2024-03-15] MEDS: LOPRESSOR 2.5 MG IV (09:54)
--- NOTE | 2024-03-15 10:08 | W.PN.HOSP.TC ---
Today's Communication/Plan
-
Panculture. Change IV fluids. IV antibiotics
Assessment / Plan
Assessment / Plan
Physical exam:
General: Acutely ill
HEENT: Scabbed lesions on forehead. Normocephalic, Atraumatic and Moist Mucous Membranes
Respiratory: Bilateral rhonchi; Negative Crackles or Wheezes
Cardiac: Regular Rhythm, tachycardic, and S1/S2
GI: Soft, Nontender and Nondistended
Musculoskeletal: Contractures left side. No Clubbing, No Cyanosis and No Edema
Neuro: Semi-obtunded, does not respond to verbal stimuli but respond to painful stimuli, left hemiparesis, encephalopathic.
Psych: Lack of judgment and insight
A/P:
Toxic metabolic encephalopathy:
Multifactorial etiology stroke, seizures, infection or central fever, metabolic causes.
Continue IV Keppra
Reviewed MRI findings-MRI of the brain-old right MCA infarct with encephalomalacia. Posterior limb of the internal capsule on the left-subacute infarct
Discussed with neurology today
Plan for LP today
Check LFTs and ammonia levels today
Discussed with cardiology
Discussed with sister again over the phone-we also discussed about potential feeding through NG tube but she would like to hold off and see how he does first which seems reasonable.
Patient having difficulty handing secretions and at risk of aspiration. Overall at risk of cardiac, hemodynamic, infectious, neurological, and respiratory decompensation leading to increased morbidity mortality. So will need closer monitoring.
Will transfer to IMU
Febrile illness, concerns for sepsis:
Blood cultures today, repeat chest x-ray, check UA
Start empirically on IV ceftriaxone
Check CRP and procalcitonin
LP negative for meningitis/encephalitis
Antiviral discontinued by ID
Less likely herpes/varicella encephalitis:
NINI:
IV fluids, change to hypotonic due to hypernatremia of D5 water
Nephrology eval
Avoid nephrotoxic
Hypernatremia:
Worsening due to free water losses-over 4 L deficit
Monitor sodium closely
Persistent tachycardia with frequent PVCs:
Beta-higinio increased by cardiology
Chronic systolic CHF:
Most GDMT medications on hold due to NINI
On IV Lopressor
Cardiology consult and appreciated input
Cardiology recommends increase Lopressor to 5 mg every 6 hours
Hypertension:
Continue IV Lopressor
Hyperlipidemia:
Unable to take statins in the moment since n.p.o.
DVT/PE in the past:
Anticoagulation on hold due to upcoming procedure and strokes
Right MCA stroke with residual left hemiplegia:
On anticoagulation and statins but now on hold due to n.p.o. status
DVT prophylaxis:
Will resume Lovenox
CODE STATUS:
DNR
Prognosis guarded
Total Critical Care Time 40 minutes. I was immediately available to the patient and staff. I personally examined, reviewed labs, diagnostic images/reports, interpretations, treatment plans, discussed patient care with other providers and family
or caregivers (if patient is unable to make decisions), entered orders as appropriate and documented the medical record.
Anticipated Discharge: > 48 hours
Subjective/Interval History
-
Date of Service: March 15, 2024
Patient more lethargic, tachycardic, having intermittent fevers. Overall looks frail.
Objective Data
-
Labs:
Laboratory Results
03/15/24 03/15/24
07:55 16:00
WBC 10.2
Hgb 15.6
Hct 46.5
Plt Count 220
Sodium 150 H Pending
Potassium 4.5 Pending
Chloride 118 H Pending
Carbon Dioxide 20 L Pending
BUN 54 H Pending
Creatinine 1.5 H Pending
Glucose 129 H Pending
Calcium 9.5 Pending
Vital Signs:
Vital Signs
Temp Pulse Resp BP Pulse Ox
100.7 F H 84 22 159/86 93
03/15/24 07:45 03/15/24 09:54 03/15/24 07:45 03/15/24 09:54 03/15/24 07:45
I&O
03/14/24 03/15/24 03/16/24
06:59 06:59 06:59
Intake Total 540 / 540 1195 / 1195
Output Total 200 / 200 1600 / 1600
Balance 340 / 340 -405 / -405
[2024-03-15 10:22] LABS: Procalcitonin < 0.05 ng/ml (0.0-0.25)
[2024-03-15 10:28] LABS: COVID-19 Antigen Negative (Negative)
--- NOTE | 2024-03-15 10:55 | W.PN.ID1 ---
Date of Service
Date of Service: March 15, 2024
Today's Communication
See below
Assessment / Plan
# Change in mental status - present on admission
# Left V1 Zoster - healing crusting lesions. Unclear whether or not pt treated at SNF.
# Subacute left infarct
# hx large R MCA infarct
# NINI- stable
- Ruled out VZV BOBBIN SORTER vasculitis from recent V1 Zoster.
LP CSF Tube 4: 4 wbc, protein 106, Meningoencephalitis PCR negative including HSV, VZV
- Discontinued Acyclovir 10mg/kg IV q8 (after 5 doses)
- Renal function stable
# New fever
- Suspect aspiration; pt gurgling
- UTI also possibility with new onset urinary retention - anaya placed 03/15.
- Ordered CXR, blood cx, UA/reflex Ucx
- Start ceftriaxone after cultures obtained.
-Aspiration precaution
- Follow temps.
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
HTN
HLD
hx R MCA CVA (2013), residual Left side weakness
HFrEF 15% to 20%
PE (2013)
Chronic pain
Right shoulder surgery
Chief Complaint
-: Other
Subjective / Review of Systems
Remains lethargic.
Vital Signs / Physical Exam
Vital Signs
Vital Signs
Temp Pulse Resp BP Pulse Ox
100.7 F H 84 22 159/86 93
03/15/24 07:45 03/15/24 09:54 03/15/24 07:45 03/15/24 09:54 03/15/24 07:45
Physical Exam
Constitutional: Acutely Ill
Pulmonary: Rhonchi and Other (gurgling sound)
Gastrointestinal: Soft, Non Tender and Non Distended
Genito-Urinary: Anaya
Extremities: Negative Edema
Neurological: Other (Lethargic)
Objective Data
Lab Data
Lab Results
03/15/24 07:55
PT 15.4 Sec (11.4-14.6) H 03/14/24 05:01
INR 1.23 03/14/24 05:01
APTT 32.7 Sec (23.4-35.0) 03/12/24 04:25
Estimated Creat Clear 60 ml/min 03/15/24 07:55
Lactic Acid 1.5 mmol/L (0.7-2.0) 03/15/24 09:08
Total Bilirubin 2.6 mg/dl (0.2-1.3) H 03/14/24 16:08
AST 32 U/L (17-59) 03/14/24 16:08
ALT 22 U/L (0-50) 03/14/24 16:08
Alkaline Phosphatase 59 U/L (38-126) 03/14/24 16:08
C-Reactive Protein 52.40 mg/L (0.0-10.00) H 03/15/24 09:08
Most recent labs reviewed.
Micro Results:
03/15/24 09:54 Influenza Types A & B (PATEL) - Final
Nasal Swab Negative for Influenza A & B, NAAT
Negative results must be combined with clinical observations
and patient history.
Nucleic Acid Amplification test (NAAT)performed on the
[employer] platform.
03/14/24 13:08 CSF Culture - Preliminary
Csf No Growth After 18-24 Hours
Gram Stain - Preliminary
03/15/24 09:08 Blood Culture - Pending
Blood/Venous
03/14/24 13:08 Meningitis/Encephalitis Panel (PCR) - Final
Csf
03/14/24 13:08 Acid Fast Bacilli Smear - Pending
Csf Acid Fast Bacilli Culture - Pending
03/12/24 09:51 MRSA Screen - Final
Nose No Methicillin Resistant Staphylococcus aureus isolated.
03/12/24 CTA head/neck: No significant vascular occlusion, aneurysm or dissection.
03/12/24 Brain MRI: Old right MCA infarct with encephalomalacia and white matter chronic ischemic change/gliosis. Though no restricted diffusion to suggest right hemisphere acute infarct.
There is, however, linear restricted diffusion along the course of the posterior limb of the LEFT internal capsule, suggesting subacute infarct.
03/13/24 CXR negative
03/13/[address]: 1. No new acute intracranial abnormality. 2. Subacute infarct of the left internal capsule, and a large chronic infarct of the right MCA distribution.
--- NOTE | 2024-03-15 11:27 | CM ---
Addendum entered by Taylor Cain RN 03/15/24 12:18:
Patient transferred to IMU.
Original Note:
Reviewed the chart notes. Patient a skilled nursing resident of [facility]. CM continues to be available to patient/family and is monitoring medical plan for needs at discharge.
Plan: Discharge back to [facility] when medically stable.
--- NOTE | 2024-03-15 12:00 | PTCARENOTE ---
Pt with worsening clinical status & NIHSS see worklist. MD notified new orders placed & provider at bedside to assess pt. Orders placed for transfer to IMU. Report given and pt transported w/ monitor.
--- NOTE | 2024-03-15 12:17 | W.PN.NEPH.PH ---
Today's Communication / Plan
-
adjusted IVF for hypernatremia
Assessment/Plan
-
IMP:
Toxic metabolic encephalopathy
Posterior limb of the internal capsule on the left-subacute infarct
Suspicion for herpes/varicella encephalitis
NINI
Chronic systolic CHF EF 15-20%
Hypertension
Hyperlipidemia
h/o DVT/PE
h/o Right MCA stroke with residual left hemiplegia
Plan:
A/w worsening weakness and speech difficulty-new subacute CVA
however concern of herpes encephalitis -Acyclovir stopped since hsv neg
NINI-cr slightly better at 1.5
UA is bland and monitor bladder scan 125cc
suspect possible ANKUSH+prerenal, contrast exposure on 03/12
would avoid nephrotoxins and hold Entresto, Aldactone, jardiance and lasix
Significant acute hypernatremia upto 150, IVF changed to D5W, FD 4.3lit
Off acyclovir per ID
suspect difficulty clearing secretions and aspiration, low grade fevers, CXR Neg
monitor vol status closely
BP stable with out hypotension on Iv BB
adjust meds renally
await labs later today
d/w nursing
-
-
Date of Service: March 15, 2024
CC / HPI / ROS
-
Chief Complaint:
NINI
History of Present Illness:
cr slightly better at 1.5, sodium acutely increased to 150
bicarb at 20, bUN up at 54
BP stable, non oliguric with out anaya
Review of Systems:
gurgling, CXR neg. altered and unable to provide history
low grade fever
Labs
-
Labs:
WBC 10.2 10^3/uL (4.8-10.8) 03/15/24 07:55
RBC 5.22 10^6/uL (4.70-6.10) 03/15/24 07:55
Hgb 15.6 g/dL (13.0-18.0) 03/15/24 07:55
Hct 46.5 % (39.0-52.0) 03/15/24 07:55
Plt Count 220 10^3/uL (130-400) 03/15/24 07:55
eGFR 52.64 03/15/24 07:55
Albumin 4.5 g/dl (3.5-5.0) 03/14/24 16:08
Physical Exam
-
Vital Signs:
Vital Signs
Temp Pulse Resp BP Pulse Ox
100.7 F H 84 22 159/86 93
03/15/24 07:45 03/15/24 09:54 03/15/24 07:45 03/15/24 09:54 03/15/24 08:00
Cardiovascular:: Regular rate and rhythm
Respiratory:: Bilateral: Coarse
Lung Excursion:: Abnormal
Abdomen:: Nontender and Soft
Extremity Edema:: None: Bilateral:
Anaya Catheter: No
[2024-03-15 12:29] LABS: Urine Albumin Trace (Neg - Trace); Urine Bilirubin Negative (Negative); Urine Character Clear (Clear); Urine Color Yellow; Urine Glucose 1+ (Negative); Urine Ketone 1+ (Negative); Urine Leukocyte Negative (Negative); Urine Nitrite Negative (Negative); Urine Occult Blood Trace (Negative); Urine Specific Gravity 1.015 (<1.030); Urine Urobilinogen Negative (Neg - 1+)
[2024-03-15] MEDS: LOPRESSOR 7.5 MG IV ×2 (12:36→17:46)
[2024-03-15 12:59] LABS: Urine Mucus Many
[2024-03-15 13:00] LABS: Urine Squamous Cell 16-20 /LPF (Few)
--- NOTE | 2024-03-15 13:00 | PTCARENOTE ---
Patient received from [address] [place] [address] upon arrival is 25, 24 prior to arrival to floor. Patient mostly responsive while turning. IVF continued through IV. All protective foams in place and intact. AAOx0, Patient with elevated blood pressure and HR.
Lopressor due at time of arrival. Coarse/rhonchi breath sounds bilaterally, gurgle in back of throat. Suctioned for white/cristobal secretions. Remains NPO. Adkins placed prior to arrival, lab work, flu and COVID tests sent (flu and COVID negative)
Lab work in for 1600. Call mistry in reach.
[2024-03-15 13:05] LABS: Urine Bacteria Few (Negative); Urine White Cell 0-2 /HPF (0-5)
[2024-03-15] MEDS: ROCEPHIN 1000 MG IV (13:16)
[2024-03-15] MEDS: STERILE WATER FOR INJECTION 10 ML IV (13:16)
[2024-03-15 17:06] LABS: Blood Urea Nitrogen 52 mg/dl (9-20); Calcium 9.8 mg/dl (8.4-10.2); Carbon Dioxide 20 mmol/L (22-30); Chloride 119 mmol/L (98-107); Estimated Creatinine Clearance 69 ml/min; Glucose 129 mg/dl (70-99); Potassium 4.3 mmol/L (3.5-5.1); Sodium 150 mmol/L (135-145); eGFR > 60.00
[2024-03-15 17:12] LABS: NT-proBNP 7800 pg/ml
[2024-03-15] MEDS: LOVENOX 40 MG SC (17:47)
[2024-03-15] MEDS: XALATAN OPHTHALMIC SOLUTION 1 DROP BOTH EYES (17:47)
--- NOTE | 2024-03-15 21:40 | W.PN.UPDATE ---
Update Note
Progress Note Update
FINANCIAL INVESTIGATOR /Stroke alert
Patient has an increase in NIH score from 24 to 33 for not moving his RUE/RLE and less sensation to the RT side.
Case was discussed with neurologist education coordinator and Stat head CT ordered.
Head CT shows
Band of decreased density involving the posterior limb of the left internal capsule, similar to prior CT examination, and corresponding to region of acute to subacute infarction on recent MRI of the brain.
Subtle focal area of decreased density in the superior and medial left temporal lobe, which could also represent an area of subacute infarction. This is probably present in retrospect on CT examination of March 13, 2024, but less conspicuous on the
previous exam.
Large area of encephalomalacia involving the right cerebral hemisphere compatible with stable old right MCA infarct.
There is no evidence for acute intracranial hemorrhage.
-Head CT result reviewed with the neurologist education coordinator.
Will continue with NIH and current plan of care.
[2024-03-15 21:44] LABS: Glucose - Point of Care 147 mg/dl (70-99)
--- NOTE | 2024-03-15 21:45 | RR ---
A Rapid Response was called on this patient, please see Rapid Response form.
--- NOTE | 2024-03-15 21:50 | PTCARENOTE ---
Received pt from day shift and completed NIHSS assessment. Increased from 24 during the day to a 32 (see worklist). RR and stroke alert called and KIRSTIN Saucedo notified. New onset of decreased response to stimuli and absence of movement on right side.
STAT head CT and labs ordered.
--- NOTE | 2024-03-15 22:11 | RESPNOTE ---
rapid response called for pt. provider dismissed respiratory
[2024-03-15 22:43] LABS: % Basophils 0.1 % (0-2); % Immature Granulocytes 0.4 % (0-0.5); % Lymphocytes 6.1 % (20.5-51.1); % Monocytes 9.2 % (1.7-9.3); % Neutrophils 84.2 % (42.2-75.2); Absolute Immature Granulocytes 0.1 10^3/uL (0-0.05); Absolute Lymphocytes 0.8 10^3/uL (1.2-3.4); Absolute Monocytes 1.3 10^3/uL (0.1-0.6); Absolute Neutrophils 11.6 10^3/uL (1.4-6.5); Hematocrit 46.3 % (39.0-52.0); Hemoglobin 15.7 g/dL (13.0-18.0); Mean Corp Hgb Conc. 33.9 g/dL (33.0-37.0); Mean Corpuscular Hgb 29.9 pg (27.0-31.0); Mean Corpuscular Volume 88.2 fL (80.0-94.0); Nucleated Red Blood Cells % 0 % (-); Platelet Count 232 10^3/uL (130-400); Red Blood Cell Count 5.25 10^6/uL (4.70-6.10); Red Cell Dist. Width 12.5 % (11.5-14.5); White Blood Cell Count 13.8 10^3/uL (4.8-10.8)
[2024-03-15 22:52] LABS: Blood Urea Nitrogen 48 mg/dl (9-20); Calcium 9.7 mg/dl (8.4-10.2); Carbon Dioxide 22 mmol/L (22-30); Chloride 120 mmol/L (98-107); Estimated Creatinine Clearance 64 ml/min; Glucose 145 mg/dl (70-99); Potassium 4.1 mmol/L (3.5-5.1); Sodium 151 mmol/L (135-145); eGFR 57.18
[2024-03-16] VITALS (12 sets, daily range): BP systolic 105–159; BP diastolic 66–102; BMI 27.4
[2024-03-16] MEDS: D5W 1000 IV ×2 (00:06→10:01)
[2024-03-16] MEDS: LOPRESSOR 7.5 MG IV ×3 (00:08→12:09)
[2024-03-16 05:41] LABS: % Basophils 0.1 % (0-2); % Immature Granulocytes 0.3 % (0-0.5); % Lymphocytes 7.3 % (20.5-51.1); % Neutrophils 84.3 % (42.2-75.2); Hematocrit 47.4 % (39.0-52.0); Hemoglobin 15.4 g/dL (13.0-18.0); Mean Corp Hgb Conc. 32.5 g/dL (33.0-37.0); Mean Corpuscular Hgb 30.3 pg (27.0-31.0); Mean Corpuscular Volume 93.3 fL (80.0-94.0); Mean Platelet Volume 10.1 fL (7.4-10.4); Nucleated Red Blood Cells % 0 % (-); Platelet Count 224 10^3/uL (130-400); Red Blood Cell Count 5.08 10^6/uL (4.70-6.10); Red Cell Dist. Width 12.4 % (11.5-14.5)
[2024-03-16 06:10] LABS: Blood Urea Nitrogen 48 mg/dl (9-20); Calcium 9.6 mg/dl (8.4-10.2); Carbon Dioxide 24 mmol/L (22-30); Chloride 118 mmol/L (98-107); Estimated Creatinine Clearance 69 ml/min; Glucose 146 mg/dl (70-99); Potassium 4.2 mmol/L (3.5-5.1); Sodium 151 mmol/L (135-145); eGFR > 60.00
--- NOTE | 2024-03-16 08:15 | W.PN.NEURO.1 ---
Today's Communication / Plan
-
Continue newly initiated levetiracetam 500 mg every 12 hours
Continue aspirin 300 mg per rectum, return to apixaban instead when patient able to take by mouth
Neuro Assessment/Plan
Assessment
63-year-old male with history of bilateral strokes with chronic left hemiparesis and new onset right sided weakness.
Based on forehead rash, the possibility of herpes zoster encephalitis was present and subsequent lumbar puncture was not suggestive of same
EEG was not specific for herpes encephalitis.
Overall prognosis is guarded and at this point seems unlikely that the patient will have a meaningful neurological recovery
Plan
Continue newly initiated levetiracetam 500 mg every 12 hours
Attempt to remediate patient's hypernatremia
Continue aspirin 300 mg per rectum, return to apixaban instead when patient able to take by mouth
Goal of normotension
Goal of normoglycemia
DVT prophylaxis
Provide medical educational materials
Will follow as needed
Subjective/Objective
Subjective Data
Date of Service: March 16, 2024
Patient had a further decline in function with an increase in NIH stroke score due to sensation in the right side and reduced right upper and lower extremity mobility.
Objective Data
Vital Signs
Temp Pulse Resp BP Pulse Ox
37.3 C 96 33 127/80 94
03/16/24 04:20 03/16/24 06:00 03/16/24 06:00 03/16/24 06:00 03/16/24 06:00
Lab Results
03/16/24 05:29
03/16/24 05:29
PT 15.4 Sec (11.4-14.6) H 03/14/24 05:01
INR 1.23 03/14/24 05:01
APTT 32.7 Sec (23.4-35.0) 03/12/24 04:25
Sodium 151 mmol/L (135-145) H 03/16/24 05:29
Potassium 4.2 mmol/L (3.5-5.1) 03/16/24 05:29
BUN 48 mg/dl (9-20) H 03/16/24 05:29
Glucose 146 mg/dl (70-99) H 03/16/24 05:29
Calcium 9.6 mg/dl (8.4-10.2) 03/16/24 05:29
Bee-P-Ofmyjhilleq Pept 7800 pg/ml 03/15/24 16:32
LDL Cholesterol, Calc 94 mg/dl 03/13/24 11:55
Patient Allergies
No Known Allergies Allergy (Verified 03/12/24 04:56)
Review of Systems
-
Unable to obtain full review of systems at this time due to: Aphasia
History Source: Patient
All other systems: Reviewed and negative
Physical Exam
-
General: No Apparent Distress and Appears Stated Age
Eyes: Round OU, [place] Conjunctivae and No Ptosis
HEENT: Anicteric and Moist Mucous Membranes
Neck: Full Range of Motion
Respiratory: No Dyspnea
Cardiac: No JVD
GI: Non-distended
Skin: Unremarkable
Extremities: No Clubbing, No Cyanosis and No Edema
Psych: Unable to Assess
Extended Neurological Exam
Mood & Affect: Unable to Assess
Attention Span & Concentration: Unable to Perform 2 Step Request, Unresponsive to Verbal Stimuli and Unresponsive to Physical Stimuli
Memory: Unable to Assess
Tremor: Hand Tremor Absent and Head Tremor Absent
Involuntary Movement: None
Speech: Mute
Cranial Nerve II: Left Eye: Pupillary Size Unremarkable and Other (No blink to threat)
Cranial Nerve II: Right Eye: Pupillary Size Unremarkable and Other (No blink to threat)
Cranial Nerves III, IV, : Extraocular Movement: Absent Doll's Eyes (And positive doll's eyes)
Cranial Nerve V: Facial Sensation: Unable to Assess
Cranial Nerve VII: Facial Symmetry: Normal Facial Symmetry
Cranial Nerve VIII: Hearing: Unable to Assess
Cranial Nerves IX, X: Palate Movement: Unable to Assess
Cranial Nerve XI: Shoulder Shrug: Unable to Assess
Cranial Nerve XII: Tongue Protusion: Unable to Assess
Muscle Strength, Overall: Negative Spontaneously Moves
Muscle Bulk & Tone: Increased Tone (Rare decorticate movement of the left upper extremity)
Pronator Drift: Unable to Assess
Cold Sensation: Unable to Assess
Vibration Sensation: Unable to Assess
Coordination: Unable to Assess
Gait & Station: Unable to Assess
Data Reviewed
-
CT Head: Report Reviewed and Image Reviewed
MRI Head: Report Reviewed and Image Reviewed
Labs: Report Reviewed
Reviewed with: Physician, Nurse and Nurse Practioner
Old Records: Summarized
Past History
Past History
ED Past Medical History: CHF (EF of 10%), CVA (Right MCA infarct January 2014, left MCA infarct March 2024), HTN, Hypercholesterolemia and Other (Bilateral pulmonary embolism January 2014, DVT)
ED Past Surgical History: Orthopedic (R LE stent and R shoulder) and Other
Social History
Tobacco: Former smoker
Alcohol: Occasional
Drug: Former user, Narcotics and IVDA
Personal:
Living: correction
Employment: Employed
Family History
Family History: Diabetes
Medications
-
Medications:
Generic Name Dose Route Start Last Admin
Trade Name Freq PRN Reason Stop Dose Admin
Acetaminophen 650 mg 03/13/24 08:53 03/15/24 09:00
Acetaminophen 650 Mg Rectal Suppository RECTAL 04/10/24 08:52 650 mg
Q6HPRN PRN Administration
pain, fever
Apixaban 5 mg 03/12/24 09:11 03/13/24 08:50
Apixaban (Eliquis) 5 Mg Tablet PO 04/09/24 09:10 Not Given
BID BROOKE
Aspirin 300 mg 03/13/24 09:00 03/15/24 09:00
Aspirin 300 Mg Rectal Suppository RECTAL 04/10/24 08:59 300 mg
DAILY BROOKE Administration
Atorvastatin Calcium 80 mg 03/12/24 18:00 03/12/24 17:12
Atorvastatin (Lipitor) 40 Mg Tablet PO 04/09/24 17:59 80 mg
QPM BROOKE Administration
Carvedilol 12.5 mg 03/12/24 20:00 03/13/24 08:49
Carvedilol 12.5 Mg Tablet PO 04/09/24 19:59 Not Given
BID BROOKE
Ceftriaxone Sodium 1,000 mg 03/15/24 14:00 03/15/24 13:16
Ceftriaxone 1000 Mg / 10 Ml Vial IV 1,000 mg
Q24H BROOKE Administration
Enoxaparin Sodium 40 mg 03/13/24 19:00 03/15/24 17:47
Enoxaparin Sodium 40 Mg/0.4 Ml Syringe SC 04/10/24 18:59 40 mg
QPM BROOKE Administration
Gabapentin 400 mg 03/12/24 22:00 03/12/24 21:36
Gabapentin 400 Mg Capsule PO 04/09/24 21:59 Not Given
HS BROOKE
Gabapentin 300 mg 03/12/24 20:00 03/13/24 08:50
Gabapentin 300 Mg Capsule PO 04/09/24 19:59 Not Given
BID BROOKE
Dextrose 1,000 mls @ 100 mls/hr 03/15/24 09:00 03/16/24 00:06
D5w IV 1,000 mls
.Q10H BROOKE Administration
Latanoprost 1 drop 03/12/24 18:00 03/15/24 17:47
Latanoprost 0.005% (Ophthalmic Solution) 2.5 Ml Bottle BOTH EYES 04/09/24 17:59 1 drop
QPM BROOKE Administration
Levetiracetam 500 mg 03/13/24 20:00 03/15/24 19:39
Levetiracetam (100 Mg/Ml) 500 Mg/5 Ml Vial IV 04/10/24 19:59 500 mg
Q12 BROOKE Administration
Metoprolol Tartrate 7.5 mg 03/15/24 12:00 03/16/24 05:39
Metoprolol 5 Mg/5 Ml Vial IV 04/12/24 11:59 7.5 mg
Q6 BROOKE Administration
Sacubitril/Valsartan 1 tab 03/12/24 09:11 03/13/24 08:50
Sacubitril 49 Mg/Valsartan 51 Mg (Entresto) Tab PO 04/09/24 09:10 Not Given
BID BROOKE
Sodium Chloride 0 flush 03/12/24 10:00
Sodium Chloride 0.9% (Flush) Syringe IV 04/09/24 09:59
PER PROTOCOL BROOKE
Sterile Water 10 ml 03/15/24 14:00 03/15/24 13:16
Sterile Water For Injection 10 Ml Vial IV 04/12/24 13:59 10 ml
Q24H BROOKE Administration
--- NOTE | 2024-03-16 08:29 | W.PN.CARDCBS ---
Addendum entered and electronically signed by Tony Ibanez MD 03/16/24 15:04:
I saw and examined the patient.
The Employment Law Specialist's note was reviewed and I agree with the note.
Comment: Decision to transition to comfort care, we will sign off, please recall as needed
Original Note:
Today's Communication / Plan
-
Follow BP and HR
Eventually resume outpatient meds
Impression / Plan
-
PCP: Apolinar Espinoza
Outcomes Specialist: Dr. Dougherty
Impression:
Presented 03/12/2024 with left-sided weakness, left facial droop
Altered mental status/TME
Subacute left internal capsule stroke on MRI 03/12/2024
Possible VZV ASSOCIATE FIELD SERVICE ENGINEER vasculitis from recent V1 Zoster
Seizure
NINI, suspect dehydration
Tachycardia
Frequent PVCs
Chronic heart failure with reduced ejection fraction
NICM
Hypertension
Hyperlipidemia
h/o right MCA stroke with residual left hemiplegia January 2014
Chronic pain syndrome/polyneuropathy
Bilateral pulmonary embolism 2013
Right lower extremity DVT
Chronic anticoagulation as outpatient with Eliquis
Echo January 2014: Ejection fraction 10%
Echo September 2014: Ejection fraction 10%
Echo November 2016: Ejection fraction 35 to 40%����
ECHO 10/28/2023: EF 15-20%, mild concentric LVH. No significant valvular disease���
Lexiscan sestamibi stress test November 2014: Large minimally reversible defect(s) in the anteroseptal segment and the lateral and inferior segments and the apical segment consistent with infarction with residual ischemia there is also artifact noted.
Severely Reduced systolic function. The ejection fraction is 22%. This is a high risk study.
Plan:
-Patient with previous right MCA territory CVA and residual left sided hemiplegia 01/2014 and came in this admission with change in mental status and left sided facial droop. MRI brain with possible subacute left internal capsule CVA. Neurology
following and recommended aspirin per rectum while NPO and resumption of PO meds when able. Hospitalist attending talked with patient's sister about an NG tube, but she would like to wait and see if mentation improves. Currently there is concern for
aspiration.
-ID following for possible VZV ASSOCIATE FIELD SERVICE ENGINEER
-From a cardiac standpoint, patient was taking Coreg 6.25 mg BID, Entresto 49/51 mg BID, spironolactone 12.5 mg daily and Lasix 20 mg daily prior to admission and all meds are on hold while he is NPO. Patient is currently ordered Lopressor 7.5 mg IV
q 6 hours and BP is 156/66 with HR 101. Will add
-EF down to 15-20% by echo 10/28/23, but has been up and down for the last 10 years. Eventually resume meds as outlined above.
-Patient has declined ICD implant or cardiac testing previously and is not a candidate currently.
-pro-BNP 7800, but CXR without change. Outpatient dose of Lasix has been on hold since admission. Patient has only received 1 L IVFs this admission. Will not add Lasix IV
-Eliquis OAC prior to admission was for h/o DVT and PE, it is not managed by cardiology.
HPI 03/14/2024:
Patient is a 63-year-old male from [facility] with history of large right MCA stroke in 2013 with residual left-sided weakness, heart failure with reduced EF, waxing and waning cardiomyopathy, hypertension, hyperlipidemia,
pulmonary embolism/DVT (2013) on chronic anticoagulation with Eliquis who presented to ED on 03/11/24 due to LLE weakness and worsening L facial droop. Head CT no acute change, UA negative. He was discharged back to SNF. He returned to ED 03/12/24 with
dysarthria, persistent LLE weakness. Brain MRI 03/12/2024 showed old R MCA infarct, subacute left internal capsule infarct, CTA of head and neck showed no significant vascular occlusion, aneurysm or dissection. Patient then developed worsening
mental status/lethargy after presentation to emergency department. He was initially started on valacyclovir for concern for herpes zoster of his forehead then transition to acyclovir due to lethargy. Patient with poor oral intake since admission
with significant bump in creatinine from 0.9-1.6. Cardiology being asked to see patient for tachycardia and frequent PVCs in setting of known cardiomyopathy and chronic heart failure.
History unable to be obtained secondary to patient being obtunded. History obtained through review of medical records, discussion with coordinating care providers and nursing.
Progress Note - Outcomes Specialist
Subjective
Date of Service: March 16, 2024
Opens eyes, but not conversing
Objective
Labs:
03/16/24 05:29
03/16/24 05:29
Labs
Hgb 15.4 g/dL (13.0-18.0) 03/16/24 05:29
Hct 47.4 % (39.0-52.0) 03/16/24 05:29
Plt Count 224 10^3/uL (130-400) 03/16/24 05:29
PT 15.4 Sec (11.4-14.6) H 03/14/24 05:01
INR 1.23 03/14/24 05:01
APTT 32.7 Sec (23.4-35.0) 03/12/24 04:25
Sodium 151 mmol/L (135-145) H 03/16/24 05:29
Potassium 4.2 mmol/L (3.5-5.1) 03/16/24 05:29
BUN 48 mg/dl (9-20) H 03/16/24 05:29
Creatinine 1.3 mg/dL (0.7-1.3) 03/16/24 05:29
Glucose 146 mg/dl (70-99) H 03/16/24 05:29
Vital Signs and I&O:
Vital Signs
Temp Pulse Resp BP Pulse Ox
101.2 F H 101 21 156/66 94
03/16/24 07:26 03/16/24 08:00 03/16/24 08:00 03/16/24 08:00 03/16/24 06:00
Vital Signs
Temp Pulse Resp BP Pulse Ox
101.2 F H 101 21 156/66 94
03/16/24 07:26 03/16/24 08:00 03/16/24 08:00 03/16/24 08:00 03/16/24 06:00
Intake & Output
03/14/24 03/15/24 03/16/24 03/17/24
06:59 06:59 06:59 06:59
Intake Total 540 / 540 1195 / 1195 1060 / 1060
Output Total 200 / 200 1600 / 1600 2150 / 2150 150 / 150
Balance 340 / 340 -405 / -405 -1090 / -1090 -150 / -150
Physical Exam
Physical Exam
GEN: NAD
HEENT: Opens eyes spontaneously
LUNGS: No audible wheeze
CV: SR with frequent PVCs on tele
ABD: ND
EXT: No edema B/L
NEURO: Left foot tapping
SKIN: Healing scabbed lesions of forehead otherwise no rash, warm, dry, pink
--- NOTE | 2024-03-16 08:45 | W.PN.NEPH.PH ---
Today's Communication / Plan
-
Maintain hypotonic IV fluid
Maintain Anaya
Assessment/Plan
-
IMP:
Hypernatremia
Toxic metabolic encephalopathy
Posterior limb of the internal capsule on the left-subacute infarct
Suspicion for herpes/varicella encephalitis
NINI
Chronic systolic CHF EF 15-20%
Hypertension
Hyperlipidemia
h/o DVT/PE
h/o Right MCA stroke with residual left hemiplegia
Plan:
A/w worsening weakness and speech difficulty-new subacute CVA
however concern of herpes encephalitis -Acyclovir stopped since hsv neg
NINI-cr slightly better at 1.3, nonoliguric via anaya,
Hypernatremia persists despite D5W at 100 cc/h, will maintain and recheck electrolytes later this afternoon
Does feeding tube need to be placed?
suspected possible ANKUSH+prerenal, contrast exposure on 03/12 but patient with gross urine output greater than 1.5L
would avoid nephrotoxins and hold Entresto, Aldactone, jardiance and lasix
Now hemodynamically more stable
Off acyclovir per ID
suspect difficulty clearing secretions and aspiration, low grade fevers, CXR Neg
monitor volume status closely
adjust meds renally
await labs later today
d/w nursing
-
-
Date of Service: March 16, 2024
CC / HPI / ROS
-
Chief Complaint:
NINI
History of Present Illness:
cr slightly better at 1. 3 sodium acutely increased to 151
Metabolic acidosis and azotemia improved
BP stable, non oliguric with out anaya
Review of Systems:
gurgling, CXR neg. altered and unable to provide history
Remains febrile
Weights unrealistically decreased
Labs
-
Labs:
WBC 13.0 10^3/uL (4.8-10.8) H 03/16/24 05:29
RBC 5.08 10^6/uL (4.70-6.10) 03/16/24 05:29
Hgb 15.4 g/dL (13.0-18.0) 03/16/24 05:29
Hct 47.4 % (39.0-52.0) 03/16/24 05:29
Plt Count 224 10^3/uL (130-400) 03/16/24 05:29
Sodium 151 mmol/L (135-145) H 03/16/24 05:29
Potassium 4.2 mmol/L (3.5-5.1) 03/16/24 05:29
Chloride 118 mmol/L (98-107) H 03/16/24 05:29
Carbon Dioxide 24 mmol/L (22-30) 03/16/24 05:29
BUN 48 mg/dl (9-20) H 03/16/24 05:29
Creatinine 1.3 mg/dL (0.7-1.3) 03/16/24 05:29
eGFR > 60.00 03/16/24 05:29
Glucose 146 mg/dl (70-99) H 03/16/24 05:29
Calcium 9.6 mg/dl (8.4-10.2) 03/16/24 05:29
Smn-A-Ognbzyufnbj Pept 7800 pg/ml 03/15/24 16:32
Albumin 4.5 g/dl (3.5-5.0) 03/14/24 16:08
Physical Exam
-
Vital Signs:
Vital Signs
Temp Pulse Resp BP Pulse Ox
101.2 F H 101 21 156/66 94
03/16/24 07:26 03/16/24 08:00 03/16/24 08:00 03/16/24 08:00 03/16/24 06:00
Cardiovascular:: Irregular rate and rhythm
Respiratory:: Bilateral: Coarse
Lung Excursion:: Abnormal
Abdomen:: Nontender and Soft
Extremity Edema:: None: Bilateral:
Anaya Catheter: Yes
--- NOTE | 2024-03-16 09:11 | W.PN.HOSP.TC ---
Addendum entered and electronically signed by Paulo Stovall MD 03/16/24 14:43:
Decided on comfort care. Stop unnecessary meds or interventions
Original Note:
Today's Communication/Plan
-
AED. IVF. Abx. Hospice discussion
Assessment / Plan
Assessment / Plan
Physical exam:
General: Acutely ill
HEENT: Scabbed lesions on forehead. Normocephalic, Atraumatic and Moist Mucous Membranes
Respiratory: Bilateral rhonchi; Negative Crackles or Wheezes
Cardiac: Regular Rhythm, tachycardic, and S1/S2
GI: Soft, Nontender and Nondistended
Musculoskeletal: Contractures left side. No Clubbing, No Cyanosis and No Edema
Neuro: Semi-obtunded, does not respond to verbal stimuli but respond to painful stimuli, left hemiparesis, encephalopathic.
Psych: Lack of judgment and insight
A/P:
Toxic metabolic encephalopathy:
Repeated CT scan of the head overnight
Discussed with neurologist today
Discussed with family (Pita) and we talked about the fact that he has been progressively deteriorating clinically and no signs of improvement at all therefore it is appropriate to discuss hospice care and poor prognosis today. Family is
agreeable to discuss more in details with the hospice staff today. Hospice consulted today.
Hold off on tube feedings since it is very likely there will be been moving forward to comfort care over the next 24 hours
Discussed with nurse
Prior to today:
Multifactorial etiology stroke, seizures, infection or central fever, metabolic causes.
Continue IV Keppra
Reviewed MRI findings-MRI of the brain-old right MCA infarct with encephalomalacia. Posterior limb of the internal capsule on the left-subacute infarct
Discussed with neurology today
Plan for LP today
Check LFTs and ammonia levels today
Discussed with cardiology
Discussed with sister again over the phone-we also discussed about potential feeding through NG tube but she would like to hold off and see how he does first which seems reasonable.
Patient having difficulty handing secretions and at risk of aspiration. Overall at risk of cardiac, hemodynamic, infectious, neurological, and respiratory decompensation leading to increased morbidity mortality. So will need closer monitoring.
Will transfer to IMU
Febrile illness, concerns for sepsis:
Blood cultures, repeat chest x-ray, check UA
Start empirically on IV ceftriaxone
Check CRP and procalcitonin
LP negative for meningitis/encephalitis
Antiviral discontinued by ID
Less likely herpes/varicella encephalitis:
NINI:
IV fluids, change to hypotonic due to hypernatremia of D5 water
Nephrology eval
Avoid nephrotoxic
Hypernatremia:
Worsening due to free water losses-over 4 L deficit
Monitor sodium closely
Persistent tachycardia with frequent PVCs:
Beta-higinio increased by cardiology
Chronic systolic CHF:
Most GDMT medications on hold due to NINI
On IV Lopressor
Cardiology consult and appreciated input
Cardiology recommends increase Lopressor to 5 mg every 6 hours
Hypertension:
Continue IV Lopressor
Hyperlipidemia:
Unable to take statins in the moment since n.p.o.
DVT/PE in the past:
Anticoagulation on hold due to upcoming procedure and strokes
Right MCA stroke with residual left hemiplegia:
On anticoagulation and statins but now on hold due to n.p.o. status
DVT prophylaxis:
Will resume Lovenox
CODE STATUS:
DNR
Prognosis guarded
Total time spent on today's encounter was 52 minutes which included time spent in counseling the patient/family regarding diagnosis and treatment plan as listed above, goals of care, and symptom management. Case was discussed with nursing staff,
specialists, and care coordinators/case management. All labs and imaging personally reviewed by me. Remainder the time spent in detailed review of previous records, lab data, imaging, and other medical provider documentation.
Anticipated Discharge: 24 - 48 hours
Subjective/Interval History
-
Date of Service: March 16, 2024
Patient deteriorated overnight. Patient continues to be frail and worsening clinical status overall. Continues to be febrile as well
Objective Data
-
Labs:
Laboratory Results
03/15/24 03/16/24 03/16/24
22:29 05:29 15:00
WBC 13.8 H 13.0 H
Hgb 15.7 15.4
Hct 46.3 47.4
Plt Count 232 224
Sodium 151 H 151 H Pending
Potassium 4.1 4.2 Pending
Chloride 120 H 118 H Pending
Carbon Dioxide 22 24 Pending
BUN 48 H 48 H
Creatinine 1.4 H 1.3
Glucose 145 H 146 H
Calcium 9.7 9.6
Vital Signs:
Vital Signs
Temp Pulse Resp BP Pulse Ox
101.2 F H 101 21 156/66 94
03/16/24 07:26 03/16/24 08:00 03/16/24 08:00 03/16/24 08:00 03/16/24 06:00
I&O
03/15/24 03/16/24 03/17/24
06:59 06:59 06:59
Intake Total 1195 / 1195 1060 / 1060
Output Total 1600 / 1600 2150 / 2150 150 / 150
Balance -405 / -405 -1090 / -1090 -150 / -150
[2024-03-16] MEDS: ASPIRIN 300 MG RECTAL (10:03)
[2024-03-16] MEDS: KEPPRA 500 MG IV (10:03)
[2024-03-16] MEDS: TYLENOL/FEVERALL 650 MG RECTAL (10:03)
--- NOTE | 2024-03-16 10:39 | PTOTSP ---
Chart reviewed and spoke with RN.
Patient transferred to IMU on 03/15/24 and orders were not continued upon transfer. PT/OT will require new orders to re-attempty intervention.
RN reports patient is obtunded at this time.
WIll follow as medically appropriate.
--- NOTE | 2024-03-16 12:58 | CM ---
Addendum entered by Lara Henry RN 03/16/24 13:30:
Notified by Hospice patient will remain here in comfort care.
Original Note:
Patient from [facility] with Dx TME, concern for sepsis. Per nursing assessment; lethargic, unresponsive.
Consult: Hospice
Spoke with patient's sister Gayla;
she states she is the only contact for the patient, her sister Marialuisa has seen him once in the past 10 years and she upset him- she asks for Marialuisa not to be contacted.
Explained hospice philosophy and benefits.
She agrees to Hospice seeing him.
Gema is hoping patient can stay here with hospice.
Spoke with [facility] re; referral.
Plan follow up after seen by Hospice.
[2024-03-16] MEDS: ROCEPHIN 1000 MG IV (13:20)
[2024-03-16] MEDS: STERILE WATER FOR INJECTION 10 ML IV (13:20)
--- NOTE | 2024-03-16 13:20 | HOSPNOTE ---
Spoke with sister Gema and she is in agreement with comfort measures. I spoke with attending and feels the patient will within 48 hours. I will continue to follow. Case management aware of plan.
--- NOTE | 2024-03-16 13:23 | PTCARENOTE ---
Pt noted to have Varun-Montes De Oca breathing pattern, Dr. Stovall updated.
--- NOTE | 2024-03-16 13:51 | W.PN.ID1 ---
Date of Service
Date of Service: March 16, 2024
Today's Communication
Poor prognosis.
DC ceftriaxone.
Assessment / Plan
# Fever, leukocytosis
- Suspect central fever from CVA vs aspiration pneumonitis without PNA
- No infectious etiology identified: UA neg, CXR no PNA, Bcx neg to date
- DC ceftriaxone
-Aspiration precaution
# Decreased mental status without improvement
# Recent Left V1 Zoster - healing crusting lesions. Unclear whether or not pt treated at [facility].
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
LP CSF Tube 4: 4 wbc, protein 106, Meningoencephalitis PCR negative including HSV, VZV
- Discontinued Acyclovir 10mg/kg IV q8 (after 5 doses)
# Subacute left infarct
# hx large R MCA infarct
# NINI- stable
Overall poor prognosis. Agree with Hospice consult.
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
HTN
HLD
hx R MCA CVA (2013), residual Left side weakness
HFrEF 15% to 20%
PE (2013)
Chronic pain
Right shoulder surgery
Chief Complaint
-: Other
Subjective / Review of Systems
Remains minimally responsive.
Vital Signs / Physical Exam
Vital Signs
Vital Signs
Temp Pulse Resp BP Pulse Ox
100.9 F H 91 25 138/88 95
03/16/24 11:35 03/16/24 12:09 03/16/24 12:00 03/16/24 12:09 03/16/24 12:00
Selected Entries
03/16/24
07:26
Temp 101.2 F H
Physical Exam
Constitutional: Acutely Ill
Cardiovascular: Regular Rate and S1/S2
Pulmonary: Clear
Gastrointestinal: Soft, Non Tender and Distended
Extremities: Negative Edema
Neurological: Other (unresponsive)
Objective Data
Lab Data
Lab Results
03/16/24 05:29
PT 15.4 Sec (11.4-14.6) H 03/14/24 05:01
INR 1.23 03/14/24 05:01
APTT 32.7 Sec (23.4-35.0) 03/12/24 04:25
Estimated Creat Clear 69 ml/min 03/16/24 05:29
Lactic Acid 1.5 mmol/L (0.7-2.0) 03/15/24 09:08
Total Bilirubin 2.6 mg/dl (0.2-1.3) H 03/14/24 16:08
AST 32 U/L (17-59) 03/14/24 16:08
ALT 22 U/L (0-50) 03/14/24 16:08
Alkaline Phosphatase 59 U/L (38-126) 03/14/24 16:08
C-Reactive Protein 52.40 mg/L (0.0-10.00) H 03/15/24 09:08
Most recent labs reviewed.
Micro Results:
03/15/24 10:31 Blood Culture - Preliminary
Blood/Venous No Growth in 24 hours- Final report to follow
03/14/24 13:08 CSF Culture - Preliminary
Csf No Growth After 48 Hours
Gram Stain - Preliminary
03/15/24 09:08 Blood Culture - Preliminary
Blood/Venous No Growth in 24 hours- Final report to follow
03/14/24 13:08 Acid Fast Bacilli Smear - Preliminary
Csf Acid Fast Bacilli Culture - Preliminary
03/15/24 09:54 Influenza Types A & B (PATEL) - Final
Nasal Swab Negative for Influenza A & B, NAAT
Negative results must be combined with clinical observations
and patient history.
Nucleic Acid Amplification test (NAAT)performed on the
[employer] platform.
03/14/24 13:08 Meningitis/Encephalitis Panel (PCR) - Final
Csf
03/12/24 09:51 MRSA Screen - Final
Nose No Methicillin Resistant Staphylococcus aureus isolated.
03/12/24 CTA head/neck: No significant vascular occlusion, aneurysm or dissection.
03/12/24 Brain MRI: Old right MCA infarct with encephalomalacia and white matter chronic ischemic change/gliosis. Though no restricted diffusion to suggest right hemisphere acute infarct.
There is, however, linear restricted diffusion along the course of the posterior limb of the LEFT internal capsule, suggesting subacute infarct.
03/13/24 CXR negative
03/13/[address]: 1. No new acute intracranial abnormality. 2. Subacute infarct of the left internal capsule, and a large chronic infarct of the right MCA distribution.
[2024-03-16] MEDS: MORPHINE 100 IV (14:15)
--- NOTE | 2024-03-16 14:45 | PTCARENOTE ---
Comfort care orders rec'd. Initiated on morphine gtt at 14:15. Family arrived at bedside.
[2024-03-16] MEDS: XALATAN OPHTHALMIC SOLUTION 1 DROP BOTH EYES (17:17)
[2024-03-16 22:25] LABS: C.neoformans Antigen Negative (Negative)
--- NOTE | 2024-03-16 23:30 | PTCARENOTE ---
Received pt from day shift. morphine ggt @ 1mg/mL/hr. Resting in bed. Pt cleaned, changed and mouth care provided. Pt with wet, non-productive, occasional cough. pt suctioned. hourly rounds performed.
[2024-03-17] VITALS: BP 132/84
[2024-03-17 05:13] VITALS: BP 142/81
--- NOTE | 2024-03-17 05:15 | PTCARENOTE ---
Verbal report given to SRINIVASAN Bowles on 2N. Pt transferred to room 2139. Paper chart and belongings sent with pt.
[2024-03-17] MEDS: TYLENOL/FEVERALL 650 MG RECTAL (05:21)
--- NOTE | 2024-03-17 07:14 | W.PN.HOSP.TC ---
Today's Communication/Plan
-
Comfort care measures.
Assessment / Plan
Assessment / Plan
Physical exam:
General: Acutely ill
HEENT: Scabbed lesions on forehead. Normocephalic, Atraumatic and Moist Mucous Membranes
Respiratory: Bilateral rhonchi; Negative Crackles or Wheezes
Cardiac: Regular Rhythm, tachycardic, and S1/S2
GI: Soft, Nontender and Nondistended
Musculoskeletal: Contractures left side. No Clubbing, No Cyanosis and No Edema
Neuro: Semi-obtunded, does not respond to verbal stimuli but respond to painful stimuli, left hemiparesis, encephalopathic.
Psych: Lack of judgment and insight
A/P:
Comfort care:
Comfort care measures including morphine and Ativan as needed
Currently on morphine drip
Add medications for increased secretions and bowel regimen
Discussed with family prior
Stopped unnecessary medications
Hospice consulted
Discussed with attending RN today
Rest of medical problems:
Stroke, acute/subacute
History of large right MCA infarct
Fever, likely central
Aspiration pneumonitis
NINI
Recent left V1 zoster
Hypernatremia
Leukocytosis
Chronic systolic CHF
Persistent tachycardia with PVCs
No DVT prophylaxis due to comfort
CODE STATUS DNR
Total time spent on today's encounter was 52 minutes which included time spent in counseling the patient/family regarding diagnosis and treatment plan as listed above, goals of care, and symptom management. Case was discussed with nursing staff,
specialists, and care coordinators/case management. All labs and imaging personally reviewed by me. Remainder the time spent in detailed review of previous records, lab data, imaging, and other medical provider documentation.
Anticipated Discharge: 24 - 48 hours
Subjective/Interval History
-
Date of Service: March 17, 2024
Patient seen and examined. Unresponsive and febrile.
Objective Data
-
Vital Signs:
Vital Signs
Temp Pulse Resp BP Pulse Ox
101.2 F H 99 18 142/81 91
03/17/24 05:13 03/17/24 05:13 03/17/24 05:13 03/17/24 05:13 03/17/24 05:31
I&O
03/16/24 03/17/24 03/18/24
06:59 06:59 06:59
Intake Total 1060 / 1060
Output Total 2150 / 2150 800 / 800
Balance -1090 / -1090 -800 / -800
[2024-03-17 08:14] VITALS: BP 131/75
--- NOTE | 2024-03-17 09:27 | CM ---
Reviewed the chart notes. Patient on morphine gtt. CM continues to be available to patient/family.
Plan: Comfort care.
[2024-03-17] MEDS: LEVSIN ORAL DROPS 0.125 MG SL (10:33)
[2024-03-17] MEDS: ATIVAN 1 MG IV ×2 (10:36→18:32)
[2024-03-17] MEDS: MORPHINE SULFATE 2 MG IV ×3 (10:43→18:32)
[2024-03-17] MEDS: ROBINUL 0.2 MG IV ×2 (14:15→18:37)
[2024-03-17] MEDS: XALATAN OPHTHALMIC SOLUTION BOTH EYES (18:32)
[2024-03-17 19:44] VITALS: BP 114/65
[2024-03-18 02:29] LABS: CSF VDRL (T. pallidum) Non Reactive (Non Reactive)
[2024-03-18 07:30] VITALS: BP 129/60
--- NOTE | 2024-03-18 08:15 | W.PN.HOSP.TC ---
Today's Communication/Plan
-
Continue current comfort care measures
Assessment / Plan
Assessment / Plan
Physical exam:
General: Acutely ill
HEENT: Scabbed lesions on forehead. Normocephalic, Atraumatic and Moist Mucous Membranes
Respiratory: Bilateral rhonchi; Negative Crackles or Wheezes
Cardiac: Regular Rhythm, tachycardic, and S1/S2
GI: Soft, Nontender and Nondistended
Musculoskeletal: Contractures left side. No Clubbing, No Cyanosis and No Edema
Neuro: Semi-obtunded, does not respond to verbal stimuli but respond to painful stimuli, left hemiparesis, encephalopathic.
Psych: Lack of judgment and insight
Plan:
Comfort care:
Comfort care measures including morphine and Ativan as needed
Currently on morphine drip
Cont medications for increased secretions and bowel regimen
Discussed with family prior
Stopped unnecessary medications
Hospice consult appreciated
Medical problems:
Stroke, acute/subacute
History of large right MCA infarct
Fever, likely central
Aspiration pneumonitis
NINI
Recent left V1 zoster
Hypernatremia
Leukocytosis
Chronic systolic CHF
Persistent tachycardia with PVCs
No DVT prophylaxis due to comfort
CODE STATUS DNR
Anticipated Discharge: 24 - 48 hours
Subjective/Interval History
-
Date of Service: March 18, 2024
Patient seen and examined. Remains minimally responsive.
Objective Data
-
Vital Signs:
Vital Signs
Temp Pulse Resp BP Pulse Ox
101.7 F H 59 18 129/60 91
03/18/24 07:30 03/18/24 07:30 03/18/24 07:30 03/18/24 07:30 03/18/24 07:30
I&O
03/17/24 03/18/24 03/19/24
06:59 06:59 06:59
Intake Total 0 / 0
Output Total 800 / 800 1050 / 1050
Balance -800 / -800 -1050 / -1050
[2024-03-18] MEDS: ROBINUL 0.2 MG IV ×2 (09:05→18:01)
[2024-03-18] MEDS: MORPHINE SULFATE 2 MG IV ×2 (09:07→18:00)
[2024-03-18] MEDS: TYLENOL/FEVERALL 650 MG RECTAL (11:47)
--- NOTE | 2024-03-18 12:59 | CM ---
Chart reviewed
Plan is to continue current comfort measures
[2024-03-18] MEDS: XALATAN OPHTHALMIC SOLUTION BOTH EYES (18:10)
[2024-03-18 19:29] VITALS: BP 121/59
[2024-03-19 07:40] VITALS: BP 132/88
--- NOTE | 2024-03-19 09:47 | W.PN.HOSP.TC ---
Today's Communication/Plan
-
Continue comfort care measures.
Assessment / Plan
Assessment / Plan
Physical exam:
General: Acutely ill
HEENT: Scabbed lesions on forehead. Normocephalic, Atraumatic and Moist Mucous Membranes
Respiratory: Bilateral rhonchi; Negative Crackles or Wheezes
Cardiac: Regular Rhythm, tachycardic, and S1/S2
GI: Soft, Nontender and Nondistended
Musculoskeletal: Contractures left side. No Clubbing, No Cyanosis and No Edema
Neuro: Semi-obtunded, does not respond to verbal stimuli but respond to painful stimuli, left hemiparesis, encephalopathic.
Psych: Lack of judgment and insight
Plan:
Comfort care:
Comfort care measures including morphine and Ativan as needed
Currently on morphine drip
Cont medications for increased secretions and bowel regimen
Discussed with family prior
Stopped unnecessary medications
Hospice consult appreciated
Medical problems:
Stroke, acute/subacute
History of large right MCA infarct
Fever, likely central
Aspiration pneumonitis
NINI
Recent left V1 zoster
Hypernatremia
Leukocytosis
Chronic systolic CHF
Persistent tachycardia with PVCs
No DVT prophylaxis due to comfort
CODE STATUS DNR
Anticipated Discharge: 24 - 48 hours
Subjective/Interval History
-
Date of Service: March 19, 2024
Patient seen and examined.
Objective Data
-
Vital Signs:
Vital Signs
Temp Pulse Resp BP Pulse Ox
101.6 F H 42 18 132/88 88
03/19/24 07:40 03/19/24 07:40 03/19/24 07:40 03/19/24 07:40 03/19/24 07:40
I&O
03/18/24 03/19/24 03/20/24
06:59 06:59 06:59
Intake Total 0 / 0 0 / 0
Output Total 1050 / 1050 475 / 475
Balance -1050 / -1050 -475 / -475
[2024-03-19] MEDS: ROBINUL 0.2 MG IV (10:27)
[2024-03-19] MEDS: MORPHINE SULFATE 2 MG IV ×2 (10:28→17:17)
[2024-03-19] MEDS: TYLENOL/FEVERALL 650 MG RECTAL (10:29)
[2024-03-19] MEDS: FLUSH (NSS) 2 FLUSH IV ×2 (10:30→17:18)
[2024-03-19] MEDS: MORPHINE 100 IV (10:49)
--- NOTE | 2024-03-19 12:01 | HOSPNOTE ---
Patient remains on comfort care. Spoke to RN Kiera, patient appears comfortable. Patient is actively dying and unresponsive. Patient is on a Morphine drip and received breakthrough before turning and repositioning this morning. Will continue comfort
care. Reviewed with RN to reach out if anything changes and hospice services are warranted.
[2024-03-19] MEDS: XALATAN OPHTHALMIC SOLUTION 1 DROP BOTH EYES (17:22)
[2024-03-19 19:14] VITALS: BP 87/55
[2024-03-20] MEDS: MORPHINE SULFATE 2 MG IV (01:46)
--- NOTE | 2024-03-20 05:24 | W.PN.DEATH ---
Pronouncement of
-
Called to see patient to pronounce.
No spontaneous heart tones or respirations noted.
Patient not responsive to verbal stimuli.
Patient is pronounced .
Time of : 04:28
Date of : 03/20/24
Family Notified: Yes
--- NOTE | 2024-03-20 09:11 | W.DCSUMMARY ---
Discharge Summary
Discharge Data
Date of Admission: 03/13/24
Date of Discharge: 03/20/24
-
Pending Results: No
Hospital Course
Patient is 63 years old man with history of CHF, stroke, nonischemic cardiomyopathy, hypertension, hyperlipidemia chronic pain syndrome, PE and DVT, presented to the hospital with altered mental status found to have large stroke. Initially felt to
have replaced encephalitis but after LP this was ruled out. Neurology and ID were consulted. Cardiology consulted and managed with rate control medications. Patient deteriorated clinically and became more encephalopathic. Despite appropriate
treatment, patient continued to do worse and family decided on comfort care measures. Patient was placed on comfort medications. He peacefully today on 03/20/2024.
Discharge duration: 32 minutes
Discharge Plan
-
Patient Disposition:
Date/Time
Date/Time: 03/20/24 04:29
Discharge Date and Time
Discharge Date/Time: 03/20/24 04:29
Print Language: [id number]
== END 2024-03-20 04:29 | disposition expired | DRG 64 ==
LOC: 2 NORTH 09:08
PROVIDERS: Hospitalist; Nurse Practitioner Family; Radiology Vascular & Interventional Radiology; ADMITTING PHYSICIAN Hospitalist; ATTENDING PHYSICIAN Hospitalist; CONSULT PHYSICIAN Internal Medicine; CONSULT PHYSICIAN Internal Medicine Cardiovascular Disease; CONSULT PHYSICIAN Internal Medicine Infectious Disease; CONSULT PHYSICIAN Psychiatry & Neurology Neurology; EMERGENCY PHYSICIAN Student in an Organized Health Care Education/Training Program; FAMILY PHYSICIAN Internal Medicine
PROC: 009U3ZX Drainage of Spinal Canal, Percutaneous Approach, Diagnostic (ICD-10-PCS; 2024-03-14)
DX: I63.81 Other cerebral infarction due to occlusion or stenosis of small artery (principal); G92.8 Other toxic encephalopathy; J69.0 Pneumonitis due to inhalation of food and vomit; I69.354 Hemiplegia and hemiparesis following cerebral infarction affecting left non-dominant side; I50.22 Chronic systolic (congestive) heart failure; I42.8 Other cardiomyopathies; N17.9 Acute kidney failure, unspecified; E87.0 Hyperosmolality and hypernatremia; E11.40 Type 2 diabetes mellitus with diabetic neuropathy, unspecified; G93.89 Other specified disorders of brain; I11.0 Hypertensive heart disease with heart failure; R56.9 Unspecified convulsions; F15.11 Other stimulant abuse, in remission; E86.0 Dehydration; Z66 Do not resuscitate; Z51.5 Encounter for palliative care; F10.91 Alcohol use, unspecified, in remission; B02.9 Zoster without complications; E78.00 Pure hypercholesterolemia, unspecified; G89.4 Chronic pain syndrome; I49.3 Ventricular premature depolarization; I25.10 Atherosclerotic heart disease of native coronary artery without angina pectoris; R47.1 Dysarthria and anarthria; R29.810 Facial weakness; R33.9 Retention of urine, unspecified; Z86.711 Personal history of pulmonary embolism; Z86.718 Personal history of other venous thrombosis and embolism; Z79.01 Long term (current) use of anticoagulants; Z79.82 Long term (current) use of aspirin; Z79.84 Long term (current) use of oral hypoglycemic drugs; Z79.899 Other long term (current) drug therapy; Z82.49 Family history of ischemic heart disease and other diseases of the circulatory system; Z87.891 Personal history of nicotine dependence
CPT/HCPCS: 51701; 62328; 70450; 70496; 70498; 70551; 71045; 80048; 80053; 80061; 80076; 81003; 81015; 82140; 82945; 82962; 83036; 83605; 83735; 83880; 84145; 84157; 84443; 84484; 85025; 85027; 85610; 85730; 86140; 86592; 86850; 86900; 86901; 87015; 87040; 87070; 87116; 87205; 87327; 87483; 87502; 87811; 89051; 92523; 92526; 92610; 93005; 95816; 96374; 97163; 97167; 99285; Q9967